=== PATIENT | female | born 1965 | race Caucasian/White ===

== ENCOUNTER 2017-03-07 09:47 | Day surgery (SDC) | payer OTHER ==
[2017-03-06 15:11] VITALS: BMI 38.7
[~2017-03-07 09:47] MED LIST: ceFAZolin SODIUM 1 GM VIAL IVPB ONE
[2017-03-07] MEDS ORDERED: ONDANSETRON 4 MG/2 ML VIAL IVPUSH PRN (10:55)
[2017-03-07] MEDS ORDERED: ACETAMINOPHEN 325 MG TABLET (FP) PO PRN (10:55)
--- NOTE | 2017-03-07 10:58 | HP ---
Admitting History and Physical - Admission History of Present Illness: 51 yo with hx/o endometriosis with new onset heavy menses Underwent TV ultrasound for evaluation of symptoms, found a thickened endometrium and a 1.7 x 1.2 x 1.2 mm area with vascular flow, findings suspicious of endometrial polyp. She desires surgical management. History Source: Patient Limitations to Obtaining History: No Limitations - Past Medical History Cardiovascular: No: HTN Pulmonary: No: Asthma Gastrointestinal: Yes: Gastritis, GERD, Hiatal Hernia ...LMP: 02/12/17 ...LMP Comment: HEAVIER,LONGER ...: No ...: 1 ...Para: 0 Heme/Onc: No: Current Chemotherapy Psych: Yes: Anxiety, Depression Endocrine: Yes: Hypothyroidism Additional Past Medical History: endometriosis - Past Surgical History Additional Past Surgical History: D&C, polypectomy - Smoking History Smoking history: Former smoker Have you smoked in the past 12 months: No If you are a former smoker, when did you quit?: 1993 - Alcohol/Substance Use Hx Alcohol Use: Yes (RARELY) - Social History Usual Living Arrangement: Yes: Alone History of Recent Travel: No Home Medications - Allergies Allergies/Adverse Reactions: Allergies Allergy/AdvReac Type Severity Reaction Status Date / Time aspirin Allergy Severe Verified 03/07/17 10:31 Penicillins Allergy Intermediate Verified 03/07/17 10:31 - Home Medications Home Medications: Ambulatory Orders Ascorbic Acid [Vitamin C -] 500 mg PO DAILY 03/06/17 BUPROPion HCL "SR" [Wellbutrin Sr [Nf]] 150 mg PO BID 03/06/17 Biotin 5,000 mcg DAILY 03/06/17 Calcium Carb, Citrate/Vit D3 [Calcium + D3 ER Tablet] 1 tab PO DAILY 03/06/17 Cetirizine HCl [Zyrtec -] 10 mg PO DAILY 03/06/17 Glucosamine/D3/Boswellia Gilma [Osteo Bi-Flex Tablet] 1 tablet PO DAILY Hydrochlorothiazide [Hctz -] 12.5 mg PO DAILY 03/06/17 L.acidoph,Paracasei, B.lactis [Probiotic] 1 each PO DAILY 03/06/17 Levothyroxine Sodium [Synthroid] 200 mcg PO DAILY 03/06/17 Lorazepam [Ativan] 0.25 mg PO PRN PRN 03/06/17 Mv-Mn/C/Glutamin/Lysin/[id number] [Airborne Lozenge] 1 tab PO DAILY 03/06/17 Pantoprazole Sodium 40 mg PO BID 03/06/17 Sucralfate Oral Suspension [Carafate Oral Suspension -] 1 gm PO HS 03/06/17 Valsartan 40 mg PO DAILY 03/06/17 Acetaminophen W/ Codeine #3 [Tylenol # 3 -] 1 tab PO Q6H #15 tablet MDD 4 Metronidazole 0.75% Vag. Gel [Metrogel 0.75% Vaginal Gel -] 1 applic VG HS #5 tube 03/07/17 Family Disease History - Family Disease History Family History: Denies Review of Systems - Review of Systems Constitutional: reports: No Symptoms Eyes: reports: No Symptoms HENT: reports: No Symptoms Cardiovascular: reports: No Symptoms Respiratory: reports: No Symptoms Gastrointestinal: reports: No Symptoms Breasts: reports: No Symptoms Reported Integumentary: reports: No Symptoms Neurological: reports: No Symptoms Endocrine: reports: No Symptoms Hematology/Lymphatic: reports: No Symptoms Psychiatric: reports: No Symptoms Physical Examination Vital Signs: Vital Signs Temperature 98.5 F 03/07/17 10:33 Pulse Rate 85 03/07/17 10:33 Respiratory Rate 16 03/07/17 10:33 Blood Pressure 123/62 03/07/17 10:33 O2 Sat by Pulse Oximetry (%) 98 03/07/17 10:33 Constitutional: Yes: Well Nourished, No Distress, Calm Cardiovascular: Yes: Regular Rate and Rhythm Respiratory: Yes: Regular, CTA Bilaterally Gastrointestinal: Yes: Normal Bowel Sounds, Soft Edema: No Integumentary: Yes: WNL Neurological: Yes: Alert, Oriented Psychiatric: Yes: Alert, Oriented Imaging - Results Ultrasound: Report Reviewed Assessment/Plan 51 yo with findings suspicious of endometrial polyp, menorrhagia for hysteroscopy, dilation and curettage 1. Consents reviewed and signed. Reviewed risks including but not limited to infection, bleeding, damage to surrounding organs such as bowel, bladder, reviewed risk of uterine perforation. Patient expressed understanding and written consent obtained 2. PCN allergy, plan for abx Postop 3. NSAID allergy, plan for tylenol #3 for pain control at home 4. SCDs for DVT PPX 5. Will proceed to OR
[2017-03-07] MEDS ORDERED: MIDAZOLAM HCL 2 MG/2 ML SINGLE DOSE VIAL ONE (11:16)
[2017-03-07] MEDS ORDERED: SUCCINYLCHOLINE CHLORIDE 200 MG/10 ML VIAL ONE ×2 (11:25→13:06)
[2017-03-07] MEDS ORDERED: PROPOFOL 20 ML ONE ×3 (11:50→13:05)
[2017-03-07] MEDS ORDERED: DESFLURANE GAS 240 ML BOTTLE IH ONE (12:31)
[2017-03-07] MEDS ORDERED: PROMETHAZINE HCL 25 MG/1 ML VIAL IVPUSH PRN (13:19)
--- NOTE | 2017-03-07 13:19 | OP ---
Operative Note - Note: Operative Date: 03/07/17 Pre-Operative Diagnosis: menorrhagia, endometrial polyp Operation: hysteroscopy, dilation and curettage using TrueClear system Findings: 1.5 cm smooth walled endometrial mass, likely fibroid, normal ostia bilaterally Post-Operative Diagnosis: Other Surgeon: Lety Mcdonough Anesthesiologist/FINAL TESTER: Lily Dutton MD (Dr. Lu) Anesthesia: General Estimated Blood Loss (mls): 5 Instrument used (Debridements only): TrueClear Fluid Volume Replaced (mls): 1,600 Operative Report Dictated: Yes
[2017-03-07] MEDS ORDERED: LACTATED RINGERS SOLUTION 1,000 ML IV SCH (13:30)
[2017-03-07 14:04] VITALS: TEMP 98.3
[2017-03-07] MEDS ORDERED: DEXAMETHASONE SOD PHOSPHATE 4 MG/1 ML VIAL ONE (16:01)
[2017-03-07] MEDS ORDERED: DEXAMETHASONE SOD PHOSPHATE 20 MG/5 ML VIAL IVPB ONE (16:13)
[2017-03-07 16:52] VITALS: BP 132/56; PULSE 71
--- NOTE | 2017-03-08 08:01 | OP ---
DATE OF OPERATION: 03/07/2017 ATTENDING PHYSICIAN RESPONSIBLE FOR SIGNING REPORT: Lety Mcdonough MD PREOPERATIVE DIAGNOSES: Menorrhagia and endometrial polyp. POSTOPERATIVE DIAGNOSES: Menorrhagia and endometrial polyp. SURGERY: Hysteroscopy, dilation and curettage using a TruClear system. SURGEON: Lety Mcdonough MD ANESTHESIOLOGIST: Lily Dutton MD and Dr. Moreno ANESTHESIA: General. ESTIMATED BLOOD LOSS: 5 FLUID VOLUME GIVEN: 1600 HYSTEROSCOPIC FLUID GIVEN: 2530 FLUID DEFICIT: 280 INDICATION: Patient is a 51-year-old with history of endometriosis with new- onset menorrhagia, underwent an ultrasound which revealed a 1.7 x 1.2 x 1.2 cm area with vascular flow, which was suspicious of a polyp. She desired definitive surgical management. She was counseled regarding risks, benefits, alternatives, and complications of the procedure including infection; bleeding; damage to surrounding organs such as bowel, bladder, ureters; uterine perforation. She expressed understanding and was brought to the operating room. DESCRIPTION OF PROCEDURE: When anesthesia was found to be adequate, patient was prepped and draped in normal sterile fashion, placed in dorsal lithotomy position using Luther stirrups. A Castro retractor was placed on the posterior portion of the patient's vagina. The cervix was gently grasped using an Allis clamp, and the cervix was dilated to accommodate a 5-mm hysteroscope. The scope was placed, and a large, smooth-walled mass was noted. The TruClear system was used, and the incisor attachment was used to resect a portion of the structure. During the resection, it was noted that the tissue was very, very thick and dense, and it was suspected to be a intracavitary fibroid. The device was removed; the incisor attachment was replaced with the ultra mini attachment. This was then used to aid in the removal of the endometrial mass. The entirety of the mass was removed with good hemostasis. Bilateral ostia were visualized. At this point in time, a directed curettage of the endometrium was performed using the incisor blade. All instruments were removed from the patient's vagina. The patient was awoken from anesthesia and was brought to recovery room in stable condition. Elpidio [id number] MTDD
--- NOTE | 2017-03-08 13:49 | PATH ---
Surgical Pathology Report Patient Name: ASHLIE NGO [facility]. Rec. #: [id number] /Age/Gender: 1965 (Age: 51) / F Account: [id number] Location: [facility] SURGICAL Taken: 03/07/2017 Received: 03/07/2017 Reported: 03/08/2017 Physicians: Lety Mcdonough Specimen(s) Received ENDOMETRIAL CURETTINGS AND POLYP Clinical History Endometrial polyp Final Diagnosis ENDOMETRIAL CURETTINGS AND POLYP, DILATATION AND CURETTAGE:POLYPOID FRAGMENTS OF SECRETORY ENDOMETRIUM AND SMOOTH MUSCLE CONSISTENT WITH LEIOMYOMA. Electronically Signed Emili Gore M.D. Gross Description Received in formalin labeled "endometrial curettage polyp," is a 4.8 x 2.7 x 0.3 cm aggregate of bautista soft tissue fragments. The formalin is filtered and the specimen is entirely submitted in one cassette. /03/07/2017 saudi03/07/2017
== END 2017-03-07 16:53 | disposition home or self-care (01) ==
LOC: JASU-SURG 09:47
PROVIDERS: ATTEND Obstetrics & Gynecology
PROC: 0UB98ZZ Excision of Uterus, Via Natural or Artificial Opening Endoscopic (ICD-10-PCS; principal; 2017-03-07 11:00)
PROC: 0UDB8ZX Extraction of Endometrium, Via Natural or Artificial Opening Endoscopic, Diagnostic (ICD-10-PCS; 2017-03-07 11:00)
DX: N92.0 Excessive and frequent menstruation with regular cycle (principal); D25.9 Leiomyoma of uterus, unspecified
CPT/HCPCS: 84703; 94760

== ENCOUNTER 2018-04-18 12:50 | Inpatient (IN) | payer OTHER ==
--- NOTE | 2018-04-18 13:49 | PDOC ---
History of Present Illness - General Chief Complaint: Pain, Acute Stated Complaint: POSTIVE DVT Time Seen by Provider: 04/18/18 13:10 History Source: Patient Exam Limitations: No Limitations - History of Present Illness Initial Comments: 04/18/18 15:17 Patient is a 52-year-old female with past medical history of hypertension, Abhilash's, GERD who presents to the ER today for a positive blood clot in the left lower extremity for 2 days. Patient also admits to associated shortness of breath on exertion and cough for 2 weeks. She states she has tried multiple inhalers and steroids however that has not helped with her breathing. She states there is a family history of blood clots. Denies chest pain, fever, chills, shortness of breath at rest, nausea, vomiting. No recent travel, denies hormone use, pt does not smoke. Triage vitals notable for HR of 101. Past History - Travel Traveled outside of the country in the last 30 days: No Close contact w/someone who was outside of country & ill: No - Past Medical History Allergies/Adverse Reactions: Allergies Allergy/AdvReac Type Severity Reaction Status Date / Time aspirin Allergy Severe Verified 03/07/17 10:31 Penicillins Allergy Intermediate Verified 03/07/17 10:31 Home Medications: Ambulatory Orders Bupropion HCl 0 mg PO BID 04/18/18 Hydrochlorothiazide [Hctz -] 12.5 mg PO DAILY 04/18/18 Levothyroxine [Synthroid -] 200 mcg PO ASDIR 04/18/18 Pantoprazole Sodium [Protonix] 40 mg PO BID 04/18/18 Prednisone 10 mg PO ASDIR 04/18/18 Salmeterol/Fluticasone [Advair 100Mcg/50Mcg -] 1 inh PO BID 04/18/18 Valsartan [Diovan] 40 mg PO DAILY 04/18/18 Anemia: No Asthma: No Cancer: No Cardiac Disorders: No CVA: No COPD: No CHF: No Dementia: No Diabetes: No GI Disorders: Yes Disorders: No HTN: Yes Hypercholesterolemia: No Liver Disease: No Seizures: No Thyroid Disease: Yes (hypothyroidism) - Surgical History Abdominal Surgery: No Appendectomy: No Cardiac Surgery: No Cholecystectomy: No Lung Surgery: No Neurologic Surgery: No Orthopedic Surgery: No - Suicide/Smoking/Psychosocial Hx Smoking History: Never smoked Have you smoked in the past 12 months: No If you are a former smoker, when did you quit?: 1993 Information on smoking cessation initiated: No Hx Alcohol Use: No Drug/Substance Use Hx: No Substance Use Type: None Hx Substance Use Treatment: No Review of Systems - Review of Systems Able to Perform ROS?: Yes Comments:: 04/18/18 17:34 CONSTITUTIONAL: Absent: fever, chills, diaphoresis, generalized weakness, malaise, loss of appetite HEENT: Absent: rhinorrhea, nasal congestion, throat pain, throat swelling, difficulty swallowing, mouth swelling, ear pain, eye pain, visual Changes CARDIOVASCULAR: Absent: chest pain, loss of consciousness, palpitations, irregular heart rate, peripheral edema RESPIRATORY: Present: shortness of breath on exertion, cough Absent: cough, shortness of breath, dyspnea with exertion, orthopnea, wheezing, stridor, hemoptysis GASTROINTESTINAL: Absent: abdominal pain, abdominal distension, nausea, vomiting, diarrhea, constipation, melena, hematochezia GENITOURINARY: Absent: dysuria, frequency, urgency, hesitancy, hematuria, flank pain, genital pain MUSCULOSKELETAL: Present: L leg pain d/t blood clot Absent: arthralgia, joint swelling SKIN: Absent: rash, itching, pallor HEMATOLOGIC/IMMUNOLOGIC: Absent: easy bleeding, easy bruising, lymphadenopathy, frequent infections ENDOCRINE: Absent: unexplained weight gain, unexplained weight loss, heat intolerance, cold intolerance NEUROLOGIC: Absent: headache, focal weakness or paresthesias, dizziness, unsteady gait, seizure, mental status changes, bladder or bowel incontinence PSYCHIATRIC: Absent: anxiety, depression, suicidal or homicidal ideation, hallucinations. Is the patient limited Maltese proficient: No *Physical Exam - Vital Signs Last Vital Signs Temp Pulse Resp BP Pulse Ox 98 F 100 H 20 146/77 97 04/18/18 12:52 04/18/18 12:52 04/18/18 12:52 04/18/18 12:52 04/18/18 12:52 - Physical Exam Comments: 04/18/18 17:34 GENERAL: Well developed, well nourished. Awake and alert. No acute distress. HEENT: Normocephalic, atraumatic. PERRLA, EOMI. No conjunctival pallor. Sclera are non- icteric. Moist mucous membranes. Oropharynx is clear. NECK: Supple. Full ROM. No JVD. Carotid pulses 2+ and symmetric, without bruits. No thyromegaly. No lymphadenopathy. CARDIOVASCULAR: Regular rate and rhythm. No murmurs, rubs, or gallops. Distal pulses are 2+ and symmetric. PULMONARY: No evidence of respiratory distress. Lungs clear to auscultation bilaterally. No wheezing, rales or rhonchi. ABDOMINAL: Soft. Non-tender. Non-distended. No rebound or guarding. No organomegaly. Normoactive bowel sounds. MUSCULOSKELETAL Normal range of motion at all joints. No bony deformities or tenderness. No CVA tenderness. EXTREMITIES: No cyanosis. No clubbing. No edema. (+) L calf tenderness. SKIN: Warm and dry. Normal capillary refill. No rashes. No jaundice. NEUROLOGICAL: Alert, awake, appropriate. Cranial nerves 2-12 intact. No deficits to light touch and temperature in face, upper extremities and lower extremities. No motor deficits in the in face, upper extremities and lower extremities. Normoreflexic in the upper and lower extremities. Normal speech. Toes are down- going bilaterally. Gait is normal without ataxia. PSYCHIATRIC: Cooperative. Good eye contact. Appropriate mood and affect. Moderate Sedation - Procedure Monitoring Vital Signs: Procedure Monitoring Vital Signs Temperature 98 F 04/18/18 12:52 Pulse Rate 100 H 04/18/18 12:52 Respiratory Rate 20 04/18/18 12:52 Blood Pressure 146/77 04/18/18 12:52 O2 Sat by Pulse Oximetry (%) 97 04/18/18 12:52 ED Treatment Course - LABORATORY CBC & Chemistry Diagram: 04/18/18 14:08 04/18/18 14:08 Medical Decision Making - Critical Care Time Total Critical Care Time (minutes): 30 Critical Care Statement: The care of this patient involved high complexity decision making to prevent further life threatening deterioration of the patient 's condition and/or to evaluate & treat vital organ system(s) failure or risk of failure. - Medical Decision Making 04/18/18 18:18 Patient is a 52-year-old female with past medical history of hypertension, Abhilash's, GERD who presents to the emergency department today for a positive blood clot diagnosed on ultrasound on the left leg as well as shortness of breath on exertion. Clinical concern for PE at this time given positive DVT study and tachycardia at 100. On exam left leg is tender to palpation. Ultrasound documented in our facility for positive left DVT. Lungs are clear to auscultation bilaterally. Patient denies hormone use, smoking, recent travel longer than 6 hours. Lab work is unremarkable at this time. EKG: Rate 90BPM. Sinus Rhythm. Normal intervals and axis. No acute ST-T wave changes. CTA of chest shows multiple PEs in the distal branches as well as a small PE in the left mainstem branch. Given multiple PEs and a positive DVT, unprovoked, will admit the patient for clotting disorder workup and for heparin. Daina paged 04/18/18 18:[address] Lynch PGY3. Accepts for admission under Dr. Velasco. Heparin drip order set placed *DC/Admit/Observation/Transfer Diagnosis at time of Disposition: Pulmonary embolism Qualifiers: Pulmonary embolism type: unspecified Chronicity: acute Acute cor pulmonale presence: without acute cor pulmonale Qualified Code(s): I26.99 - Other pulmonary embolism without acute cor pulmonale DVT (deep venous thrombosis) Qualifiers: DVT location: lower extremity Affected thrombotic vein of extremity: unspecified vein of extremity Chronicity: acute Laterality: left Qualified Code( s): I82.402 - Acute embolism and thrombosis of unspecified deep veins of left lower extremity - Discharge Dispostion Condition at time of disposition: Guarded Decision to Admit order: Yes - Referrals - Patient Instructions - Post Discharge Activity
[2018-04-18 14:28] LABS: HCG,QUALITATIVE URINE Negative
[2018-04-18 14:36] LABS: URINE APPEARANCE SLCLOUDY; URINE BILIRUBIN NEGATIVE (<2.0 mg/dL); URINE COLOR YELLOW; URINE GLUCOSE (UA) NEGATIVE (NEGATIVE); URINE KETONE NEGATIVE (NEGATIVE); URINE LEUK ESTERASE 1+ (NEGATIVE); URINE NITRITE NEGATIVE (NEGATIVE); URINE PROTEIN 1+ (NEGATIVE); URINE UROBILINOGEN NEGATIVE mg/dL (0.2-1.0)
[2018-04-18 14:39] LABS: EPI CELLS MANY /HPF (FEW); URINE HYALINE CAST 1 /lpf; URINE MUCUS RARE
[2018-04-18 14:54] LABS: BASO % 0.3 % (0-2.0); EOS % 0.9 % (0-4.5); HEMATOCRIT 33.1 % (32.4-45.2); HEMOGLOBIN 10.7 GM/dL (10.7-15.3); LYMPH % 20.4 % (8-40); MCHC 32.4 g/dl (32.0-36.0); MEAN CELL VOLUME 77.3 fl (80-96); MEAN PLT VOLUME 7.5 fl (7.5-11.1); MONO % 6.6 % (3.8-10.2); NEUT % 71.8 % (42.8-82.8); PLATELET COUNT 318 K/MM3 (134-434); RBC 4.29 M/mm3 (3.60-5.2); RDW 17.7 % (11.6-15.6)
[2018-04-18 15:00] LABS: INR 1.03 (0.83-1.09); PROTHROMBIN TIME (PATIENT) 12.2 SEC (9.7-13.0)
[2018-04-18 15:11] LABS: ALBUMIN 3.5 g/dl (3.4-5.0); ALK PHOS 90 U/L (45-117); ANION GAP 9 MMOL/L (8-16); BILIRUBIN,TOTAL 0.4 mg/dL (0.2-1); BLOOD UREA NITROGEN 10 mg/dL (7-18); CALCIUM 8.6 mg/dL (8.5-10.1); CHLORIDE 103 mmol/L (98-107); CO2 25 mmol/L (21-32); CREATININE 0.9 mg/dL (0.55-1.3); GLUCOSE,RANDOM 101 mg/dL (74-106); POTASSIUM 3.4 mmol/L (3.5-5.1); SGOT/AST 11 U/L (15-37); SGPT/ALT 19 U/L (13-61); SODIUM 137 mmol/L (136-145); TOT PROT 7.3 g/dl (6.4-8.2)
[2018-04-18] MEDS ORDERED: HEPARIN NA (PORCINE) 5,000 UNITS/ML 1ML VIAL IVPUSH PRN ×2 (18:39)
[2018-04-18] MEDS ORDERED: LORazepam 2 MG/ML SDV VIAL ONE (18:44)
[2018-04-18] MEDS ORDERED: HEPARIN - 25,000 UNIT in SODIUM CHLORIDE 495 ML IV SCH (18:45)
[2018-04-18] MEDS ORDERED: HEPARIN INFUSION - 25,000 UNITS/500 ML INFUS.BAG IVPB ONE (19:05)
[2018-04-18] MEDS ORDERED: HEPARIN NA (PORCINE) 5,000 UNITS/ML 1ML VIAL ONE (19:05)
--- NOTE | 2018-04-18 21:32 | PN ---
Teaching Attending Note Name of Resident: Julieta Lopez ATTENDING PHYSICIAN STATEMENT I saw and evaluated the patient. I reviewed the resident's note and discussed the case with the resident. I agree with the resident's findings and plan as documented. SUBJECTIVE: Seen and examined; please refer to resident note for further historical information. Briefly, this is a 52 y/o female presenting to the ER with a CC of L-leg pain and swelling for a day and several weeks of intermittent SOB and chest tightness. She is afebrile and hemodynamically stable. Nothing makes it better/worse. She was found to have a LLE DVT and multiple PEs; does have a family history of blood clots but has never been tested. She originally called her PCP who instructed her to go to urgent care; when they couldn't take her insurance she came here. 10 sys ROS done and negative aside from HPI PMH (HTN, Hasimotos, GERD, endometriosis, vertigo), PSH (hysteroscopy), Family hx (+blood clots maternal/paternal grandparents, father is on coumadin but she doesn't know why), Social hx reviewed Medication list reviewed; pending reconciliation OBJECTIVE: VS, labs, imaging reviewed NAD, AAO, resting comfortably in bed NC AT EOMI PERRLA RRR s1/2 no mgr Lungs CTAB, w/ sym exp NT ND +BS CN2-12 wnl, no fnd Normal mood, appropriate behavior ASSESSMENT AND PLAN: Patient presents with LLE DVT and multiple small PEs with a family history of blood clots (unknown dx) 1) Pulmonary Embolisms/DVT -On WB Lovenox; continue. Monitor on tele. Check echo for R-heart strain and check troponin to ensure couldn't be categorized as submassive. No hemodynamic abnormalities noted presently. Satting well on RA. Given family hx will obtain hypercoagulable workup (PE appears unprovoked with no recent travel, OCP , etc) and plan to transition to PO AC. 2) HTN -Continue home meds; controlled 3) Hx Abhilash's -Continue home meds 4) GERD -Continue home meds 5) Microcytosis without anemia -Can check OP labs 6) Leukocytosis -Mild, likely reactive FENA -PO -PRN replete -Home diet -As tolerated Full Code
[2018-04-18] MEDS: KCL 10 MEQ IVPB 10 MEQ/100 ML INFUS.BAG IVPB SCH ×2 (21:50→23:16)
[2018-04-18] MEDS ORDERED: KCL 10 MEQ IVPB 10 MEQ/100 ML INFUS.BAG IVPB ONE (21:58)
[2018-04-18] MEDS ORDERED: ENOXAPARIN NA (PORCINE) 120 MG/0.8 ML DISP.SYRIN SQ SCH (22:00)
[2018-04-18] MEDS ORDERED: ENOXAPARIN SQ SCH (22:30)
[2018-04-18] MEDS ORDERED: ENOXAPARIN NA (PORCINE) 100 MG/1 ML DISP.SYRIN SQ SCH (22:33)
--- NOTE | 2018-04-18 22:35 | HP ---
CHIEF COMPLAINT: shortness of breath PCP: Dr. Martinez HISTORY OF PRESENT ILLNESS: 52F with PMHx of HTN, Hashimotos, GERD/Hiatal Hernia, endometriosis, diverticulosis, anxiety, and vertigo presents to ED with shortness of breath. Pt reports waking up at 6 AM this morning with sudden sharp pain in left calf and left ankle, dizziness, cold-sweats, and proceeded to put on an old pair of compression stockings without relief. Pt tried to contact her PCP Dr. Martinez, advised to go to Urgent Care, but urgent care didnt take her insurance and she came to the ER. Denies any CP or SOB at rest prior to arrival. Pt reports increased SOB on exertion since February and began having dry cough, and intermittent episodes of chest tightness two weeks ago. Pt saw her PCP and was diagnosed with sinus infection/bronchitis, completed doxycycline without relief, and was switched to PO Prednisone 10mg by her PCP on Sunday. Denies fever, chills, nausea, vomiting, headache, chest pain, diarrhea. Pt denies recent travel, hormone use, recent surgery in past 4 weeks, any history of DVT/PE Pt notes family history of DVTs and PEs through her maternal and paternal grandmothers. PSHx: Endometrial polyp and Hysteroscopy ER course was notable for: (1) VS wnl, WBC 13, K 3.4 (2) Heparin drip started, IV Benadryl, Percocet, Ativan 1 mg IVP given (3) CTA chest showed multiple PE's Recent Travel: Denies PAST MEDICAL HISTORY: HTN Abhilash's GERD Hiatal hernia endometriosis diverticulosis anxiety PAST SURGICAL HISTORY: Tonsillectomy Fibroid removal Social History: Smoking: Smokes 1/2 pack per day since teenager; 4.5 pack year history Alcohol: Social Drugs: Denies Family History: Father- Dx with CHF in 2008; currently on Coumadin Mother- None Paternal grandmother- DVT/PE Maternal grandfather- hx of blood clots, [place] No children No known famhx of clotting disorders Allergies aspirin Allergy (Severe, Verified 03/07/17 10:31) "ANAPHYLACTIC REACTION" Penicillins Allergy (Intermediate, Verified 03/07/17 10:31) UNSURE OF REACTION HOME MEDICATIONS: Home Medications Medication Instructions Recorded Bupropion HCl 0 mg PO BID 04/18/18 Hydrochlorothiazide [Hctz -] 12.5 mg PO DAILY 04/18/18 Levothyroxine [Synthroid -] 200 mcg PO ASDIR 04/18/18 Pantoprazole Sodium [Protonix] 40 mg PO BID 04/18/18 Prednisone 10 mg PO ASDIR 04/18/18 Salmeterol/Fluticasone [Advair 1 inh PO BID 04/18/18 100Mcg/50Mcg -] Valsartan [Diovan] 40 mg PO DAILY 04/18/18 REVIEW OF SYSTEMS CONSTITUTIONAL: Absent: fever, chills, diaphoresis, generalized weakness, malaise, loss of appetite, weight change HEENT: Absent: rhinorrhea, nasal congestion, throat pain, throat swelling, difficulty swallowing, mouth swelling, ear pain, eye pain, visual changes CARDIOVASCULAR: Absent: chest pain, syncope, palpitations, irregular heart rate, lightheadedness , peripheral edema RESPIRATORY: +shortness of breath, dyspnea with exertion Absent: cough, orthopnea, wheezing, stridor, hemoptysis GASTROINTESTINAL: Absent: abdominal pain, abdominal distension, nausea, vomiting, diarrhea, constipation, melena, hematochezia GENITOURINARY: Absent: dysuria, frequency, urgency, hesitancy, hematuria, flank pain, genital pain MUSCULOSKELETAL: Absent: myalgia, arthralgia, joint swelling, back pain, neck pain SKIN: Absent: rash, itching, pallor HEMATOLOGIC/IMMUNOLOGIC: Absent: easy bleeding, easy bruising, lymphadenopathy, frequent infections ENDOCRINE: Absent: unexplained weight gain, unexplained weight loss, heat intolerance, cold intolerance NEUROLOGIC: Absent: headache, focal weakness or paresthesias, dizziness, unsteady gait, seizure, mental status changes, bladder or bowel incontinence PSYCHIATRIC: Absent: anxiety, depression, suicidal or homicidal ideation, hallucinations. PHYSICAL EXAMINATION Vital Signs - 24 hr 04/18/18 04/18/18 04/18/18 12:52 18:18 21:15 Temperature 98 F 98.5 F Pulse Rate 100 H Pulse Rate [ 86 88 Apical] Respiratory 20 16 19 Rate Blood Pressure 146/77 Blood Pressure 131/75 130/72 [Right Arm] O2 Sat by Pulse 97 99 100 Oximetry (%) GENERAL: AAOx3. NAD. HEENT: AT/NC. EOMI. ROSANNA. Moist mucus membranes. NECK: Normal range of motion, supple without lymphadenopathy, JVD, or masses. LUNGS: CTA B/L. No wheezes/rhonchi/rales noted. Symmetric chest rise. HEART: RRR. Normal S1, S2. No murmurs noted. ABDOMEN: Obese. Soft, NT/ND. Normoactive BS. No masses, guarding, rebound tenderness. MUSCULOSKELETAL: Normal range of motion at all joints. No bony deformities or tenderness. No CVA tenderness. EXTREMITIES: Normal ROM in b/l u/l extremities. 5/5 muscle strength throughout. Mild LLE swelling, but no pitting edema. Minimal TTP in LLE. No erythema, discoloration, warmth, redness noted. NEUROLOGICAL: Normal speech. SKIN: Warm, dry, normal turgor, no rashes or lesions noted, normal capillary refill. Laboratory Results - last 24 hr 04/18/18 04/18/18 04/18/18 14:00 14:08 14:08 WBC 13.0 H RBC 4.29 Hgb 10.7 Hct 33.1 MCV 77.3 L MCH 25.0 L MCHC 32.4 RDW 17.7 H Plt Count 318 MPV 7.5 Absolute Neuts (auto) 9.3 H Neutrophils % 71.8 Lymphocytes % 20.4 Monocytes % 6.6 Eosinophils % 0.9 Basophils % 0.3 Nucleated RBC % 0 PT with INR 12.20 INR 1.03 Sodium Potassium Chloride Carbon Dioxide Anion Gap BUN Creatinine Creat Clearance w eGFR Random Glucose Calcium Total Bilirubin AST ALT Alkaline Phosphatase Troponin I Total Protein Albumin Urine Color Yellow Urine Appearance Slcloudy Urine pH 7.0 Ur Specific [place] 1.020 Urine Protein 1+ H Urine Glucose (UA) Negative Urine Ketones Negative Urine Blood Negative Urine Nitrite Negative Urine Bilirubin Negative Urine Urobilinogen Negative Ur Leukocyte Esterase 1+ H Urine WBC (Auto) 9 Urine RBC (Auto) 1 Ur Epithelial Cells Many Hyaline Casts 1 Urine Mucus Rare Urine HCG, Qual Negative Blood Type Antibody Screen 04/18/18 04/18/18 04/18/18 14:08 14:08 21:25 WBC RBC Hgb Hct MCV MCH MCHC RDW Plt Count MPV Absolute Neuts (auto) Neutrophils % Lymphocytes % Monocytes % Eosinophils % Basophils % Nucleated RBC % PT with INR INR Sodium 137 Potassium 3.4 L Chloride 103 Carbon Dioxide 25 Anion Gap 9 BUN 10 Creatinine 0.9 Creat Clearance w eGFR > 60 Random Glucose 101 Calcium 8.6 Total Bilirubin 0.4 AST 11 L ALT 19 Alkaline Phosphatase 90 Troponin I < 0.02 Total Protein 7.3 Albumin 3.5 Urine Color Urine Appearance Urine pH Ur Specific [place] Urine Protein Urine Glucose (UA) Urine Ketones Urine Blood Urine Nitrite Urine Bilirubin Urine Urobilinogen Ur Leukocyte Esterase Urine WBC (Auto) Urine RBC (Auto) Ur Epithelial Cells Hyaline Casts Urine Mucus Urine HCG, Qual Blood Type A POSITIVE Antibody Screen Negative IMAGING: * CTA Chest: Multiple PE in the proximal and distal branches to the L upper and lower lobe PA as well as R upper, middle and R lower lobe pulmonary arteries. There is also a small embolus at the L main PA bifurcation. No acute lung disease is present. No enlarged mediastinal or hilar LN are identified. Evaluation of the upper abd appears unremarkable. * LE doppler: LLE DVT - popliteal/posterior tibial veins * EKG: NSR, HR 90, QTc 472 ms, No ST-T changes ASSESSMENT/PLAN: 52F w/ pmhx of HTN, Hashimotos, GERD/Hiatal Hernia, endometriosis, diverticulosis, anxiety, and vertigo presents to ED with shortness of breath found to have multiple PEs. #Pulmonary Embolism -CTA chest noted above; multiple PEs in proximal and distal branches to L upper and lower lobe PA as wel las R uper, middle, R lower lobe pulmonary arteries. -Pt started on heparin drip in ED; will continue with Lovenox 130 SQ BID and plan to transition to PO AC -Cont to monitor O2 sat. Pt is currently hemodynamically stable. Seems to be unprovoked PE as she has no hx of recent surgery, immobilization, OCP/hormone therapy, trauma, or active cancer. Given family hx, will do hypercoaguable workup. -Protein C/S, Antithrombin III, Factor V Leiden, ESR ordered -Admit to tele #HTN Cont home meds: HCTZ 12.5 QD, Valsartan 40 QD #Abhilash's Cont home meds: Synthroid 200 mcg QD #GERD/Gastritis Cont home med: Protonix 40 BID #Hx of Tobacco Use Cont home med: Bupropion 300 mg QD #Vertigo -Cont to monitor #Prophylaxis -Currently on Lovenox #FEN -no IVf; PO hydration -recheck lytes in AM -Sodium-controlled diet dispo -admit to tele -full code -medications have been reconciled Visit type - Emergency Visit Emergency Visit: Yes ED Registration Date: 04/18/18 Care time: The patient presented to the Emergency Department on the above date and was hospitalized for further evaluation of their emergent condition. - New Patient This patient is new to me today: Yes Date on this admission: 04/19/18 - Critical Care Critical Care patient: No
[2018-04-18] MEDS ORDERED: PATIENT'S OWN MEDICATION (NON-FORMULARY) (Fluticasone/Salmeterol [Advair Hfa 115-21 Mcg In PO SCH (22:45)
[2018-04-18] MEDS ORDERED: ENOXAPARIN NA (PORCINE) 30 MG/0.3 ML DISP.SYRIN SQ ONE (22:54)
[2018-04-18] MEDS ORDERED: ENOXAPARIN NA (PORCINE) 100 MG/1 ML DISP.SYRIN SQ ONE (22:54)
[2018-04-18] MEDS: PANTOPRAZOLE 40 MG TABLET (FP) PO SCH (23:11)
[2018-04-18] MEDS: ENOXAPARIN 100 MG, ENOXAPARIN 30 MG SQ SCH (23:11)
[2018-04-18] MEDS: FLUTICASONE/SALMETEROL 100 MCG/50 MCG DISKUS IH SCH (23:14)
[2018-04-18] MEDS ORDERED: ACETAMINOPHEN 325 MG TABLET (FP) PO PRN (23:19)
[2018-04-19 00:39] VITALS: BMI 41.1
[2018-04-19] MEDS: KCL 10 MEQ IVPB 10 MEQ/100 ML INFUS.BAG IVPB SCH (00:46)
[2018-04-19] MEDS ORDERED: LORazepam 1 MG TABLET PO ONE ×3 (01:26→21:50)
[2018-04-19] MEDS: LEVOTHYROXINE NA 100 MCG TABLET (FP) PO SCH (06:07)
[2018-04-19 06:42] LABS: BASO % 0.5 % (0-2.0); EOS % 2.2 % (0-4.5); HEMATOCRIT 31.4 % (32.4-45.2); HEMOGLOBIN 10.3 GM/dL (10.7-15.3); LYMPH % 39.4 % (8-40); MCH 25.3 pg (25.7-33.7); MCHC 32.7 g/dl (32.0-36.0); MEAN CELL VOLUME 77.4 fl (80-96); MEAN PLT VOLUME 7.5 fl (7.5-11.1); NEUT % 49.9 % (42.8-82.8); PLATELET COUNT 304 K/MM3 (134-434); RBC 4.06 M/mm3 (3.60-5.2); RDW 17.9 % (11.6-15.6); WHITE BLOOD COUNT 9.8 K/mm3 (4.0-10.0)
[2018-04-19 08:11] LABS: ALBUMIN 3.1 g/dl (3.4-5.0); ALK PHOS 84 U/L (45-117); ANION GAP 6 MMOL/L (8-16); BILIRUBIN,TOTAL 0.5 mg/dL (0.2-1); BLOOD UREA NITROGEN 8 mg/dL (7-18); CHLORIDE 106 mmol/L (98-107); CO2 26 mmol/L (21-32); CREATININE 0.8 mg/dL (0.55-1.3); GLUCOSE,RANDOM 85 mg/dL (74-106); POTASSIUM 3.8 mmol/L (3.5-5.1); SGOT/AST 11 U/L (15-37); SGPT/ALT 15 U/L (13-61); SODIUM 138 mmol/L (136-145); TOT PROT 6.5 g/dl (6.4-8.2)
[2018-04-19] MEDS: HYDROCHLOROTHIAZIDE 12.5 MG CAPSULE (FP) PO SCH (09:40)
[2018-04-19] MEDS: VALSARTAN 40 MG TABLET (FP) PO SCH (09:40)
[2018-04-19] MEDS: PANTOPRAZOLE 40 MG TABLET (FP) PO SCH ×2 (09:40→22:47)
[2018-04-19] MEDS ORDERED: PT OWN MED DRAWER 7, Y5N ONE (10:55)
[2018-04-19] MEDS: ENOXAPARIN 100 MG, ENOXAPARIN 30 MG SQ SCH ×2 (10:57→22:47)
--- NOTE | 2018-04-19 13:31 | CONSULT ---
Consult Consult Specialty:: Oncology/hematology Referred by:: Dr. Laureano Reason for Consultation:: Multiple pulmonary emboli. + family history of DVT and pulmonary emboli in grandparents - History of Present Illness Chief Complaint: February - Upper respiratory like infection , no fever, but with some SOB and dyspnea. Given antibiotic therapy with some improvement. Recently with progrssive SOB, dyspnea, fatigue, dizziness.Given prednisone 5 days prior to admission with minimal improvement. Developed left ankle and calf pain Preseented to ER - found to have DVT and CT with Multiple pulmonary emboli-- JAMES, LLL, small embolus at bifurcation, and emboli in RUL,RML, RLL. - History Source History Provided By: Patient Limitations to Obtaining History: No Limitations - Past Medical History Pulmonary: Yes: Other (SOB/dyspnea, [place]) Gastrointestinal: Yes: Gastritis, GERD, Hiatal Hernia, Other (IBS; colonoscopy and EGD-2016) Reproductive: Yes: Other (2011 hysteroscopy and endometrial polyp removed ; ) ...LMP: 04/19/18 ...: No ...: 1 ...Para: 0 () Psych: Yes: Anxiety, Depression Endocrine: Yes: Hypothyroidism, Other (Abhilash's) - Past Surgical History Additional Surgical History: 2011- hysteroscopy and removal of endometrial polyp. 2017- February- fibroid removal. 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 History of Recent Travel: No Home Medications - Allergies Allergies/Adverse Reactions: Allergies Allergy/AdvReac Type Severity Reaction Status Date / Time aspirin Allergy Severe Verified 03/07/17 10:31 Iodinated Contrast- Oral and Allergy Intermediate Hives Verified 04/19/18 02:01 IV Dye Penicillins Allergy Intermediate Verified 03/07/17 10:31 - Home Medications Home Medications: Ambulatory Orders Albuterol Sulfate Inhaler - [Ventolin Hfa Inhaler -] 1 - 2 inh PO Q4H PRN Bupropion HCl [Bupropion HCl Sr] 150 mg PO BID 04/18/18 Fluticasone/Salmeterol [Advair Hfa 115-21 Mcg Inhaler] 1 inh PO BID 04/18/18 Hydrochlorothiazide [Hctz -] 12.5 mg PO DAILY 04/18/18 Levothyroxine [Synthroid -] 200 mcg PO ASDIR 04/18/18 Pantoprazole Sodium [Protonix] 40 mg PO BID 04/18/18 Prednisone 10 mg PO ASDIR 04/18/18 Salmeterol/Fluticasone [Advair 100Mcg/50Mcg -] 1 inh PO BID 04/18/18 Sodium Chloride Nasal [place] [[place] Nasal [place]] 2 spray NS BID PRN Valsartan [Diovan] 40 mg PO DAILY 04/18/18 Family Disease History - Family Disease History Family Disease History: Other: Grandparent (maternal and paternal grandparents both with history of DVT's and P.E.'s) Review of Systems - Review of Systems Constitutional: reports: Diaphoresis, Malaise, Weakness Eyes: denies: Blurred Vision, Double Vision, Recent Change in Vision HENT: reports: Nasal Congestion. denies: Difficult Swallowing, Epistaxis, Throat Pain Neck: reports: Other (history of discogenic disease cervical neck with RUE radiculopathy). denies: Swollen Glands, Tenderness Cardiovascular: reports: Shortness of Breath. denies: Chest Pain, Edema Respiratory: reports: Exercise Intolerance, SOB, SOB on Exertion. denies: Hemoptysis Gastrointestinal: reports: Constipation, Diarrhea, Indigestion, Other (GERD) Genitourinary: denies: Burning, Dysuria, Frequency, Incontinence Breasts: reports: No Symptoms Reported, Other (Mammography 2018) Musculoskeletal: denies: Back Pain, Extremity Pain, Joint Swelling, Muscle Pain Integumentary: denies: Bruising, Change in Color, Rash Neurological: reports: Dizziness Endocrine: reports: No Symptoms Hematology/Lymphatic: denies: Easily Bruised, Excessive Bleeding, Swollen Glands Psychiatric: reports: No Symptoms Physical Exam Vital Signs: Vital Signs Temperature 98.4 F 04/19/18 09:43 Pulse Rate 92 H 04/19/18 09:43 Respiratory Rate 20 04/19/18 09:43 Blood Pressure 149/91 04/19/18 09:43 O2 Sat by Pulse Oximetry (%) 100 04/18/18 22:00 Constitutional: Yes: Mild Distress Eyes: Yes: PERRL. No: Diplopia, Ptosis, Sclera Icterus HENT: Yes: Atraumatic, Normocephalic. No: Epistaxis, Hoarseness, Nasal Congestion, Thrush, Tonsillar Exudate Neck: Yes: Supple, Trachea Midline. No: Lymphadenopathy, Tenderness, Thyromegaly Cardiovascular: Yes: Regular Rate and Rhythm Respiratory: Yes: Regular, CTA Bilaterally Gastrointestinal: Yes: Normal Bowel Sounds, Soft, Abdomen, Obese. No: Hepatomegaly, Splenomegaly Renal/: No: CVA Tenderness - Right Breast(s): Yes: WNL, Left, Right Musculoskeletal: No: Back Pain, Muscle Pain Extremities: No: Calf Tenderness Edema: LLE: 2+, RLE: 2+ Integumentary: Yes: WNL Neurological: Yes: Weakness ...Motor Strength: WNL Psychiatric: Yes: WNL Labs: CBC, BMP 04/19/18 06:00 04/19/18 06:00 Imaging - Results Cat Scan: Report Reviewed, Image Reviewed Problem List - Problems (1) DVT (deep venous thrombosis) Assessment/Plan: UNprovoked DVT left popliteal and tibal veins --partially occlusive thrombus on ultrasound. Multiple pulmonary emboli RUL,RLL small embolus in bifurcation,Emboli in RUL, RML, RLL. Family history in grandparents of pulmonary emboli and DVT's. Patient will need thrombophilia work up --it can be done as outpatient Would do age appropriate malignancy work up to include CT of abdomen and pelvis. Has annual mammography and has had colonoscopy and EGD in 2017 Would do ECHO Can bridge to coumadin or NOAC for longterm treatment . Does have anemia with heavy menses- will do screening . Code(s): I82.409 - ACUTE EMBOLISM AND THOMBOS UNSP DEEP VN UNSP LOWER EXTREMITY Qualifiers: DVT location: lower extremity Affected thrombotic vein of extremity: unspecified vein of extremity Chronicity: acute Laterality: left Qualified Code(s): I82.402 - Acute embolism and thrombosis of unspecified deep veins of left lower extremity
--- NOTE | 2018-04-19 14:16 | PN ---
Teaching Attending Note Name of Resident: Antolin Harrell ATTENDING PHYSICIAN STATEMENT I saw and evaluated the patient. I reviewed the resident's note and discussed the case with the resident. I agree with the resident's findings and plan as documented. SUBJECTIVE: Ms Gonzalez says her leg is feeling better but she is still short of breath. Denies cp and n/v. OBJECTIVE: Last Vital Signs Temp Pulse Resp BP Pulse Ox 36.9 C 92 H 20 149/91 100 04/19/18 09:43 04/19/18 09:43 04/19/18 09:43 04/19/18 09:43 04/18/18 22:00 Gen: nad, obese Pul: ctab w/o w/r/r CV: rrr w/o m/r/g Abd: +bs, s/nt/nd Ext: LLE edema CBC, BMP 04/19/18 06:00 04/19/18 06:00 ASSESSMENT AND PLAN: -case d/w Dr Cook -can change to NOAC on discharge -will obtain ECHO and CT scan A/P -continue home regimen Problem List - Problems (1) DVT (deep venous thrombosis) Code(s): I82.409 - ACUTE EMBOLISM AND THOMBOS UNSP DEEP VN UNSP LOWER EXTREMITY Qualifiers: DVT location: lower extremity Affected thrombotic vein of extremity: unspecified vein of extremity Chronicity: acute Laterality: left Qualified Code(s): I82.402 - Acute embolism and thrombosis of unspecified deep veins of left lower extremity (2) Pulmonary embolism Code(s): I26.99 - OTHER PULMONARY EMBOLISM WITHOUT ACUTE COR PULMONALE Qualifiers: Pulmonary embolism type: unspecified Chronicity: acute Acute cor pulmonale presence: without acute cor pulmonale Qualified Code(s): I26.99 - Other pulmonary embolism without acute cor pulmonale (3) HTN (hypertension) Code(s): I10 - ESSENTIAL (PRIMARY) HYPERTENSION (4) Hypothyroid Code(s): E03.9 - HYPOTHYROIDISM, UNSPECIFIED
--- NOTE | 2018-04-19 14:27 | EKG ---
Test Reason : Blood Pressure : / mmHG Vent. Rate : 090 BPM Atrial Rate : 090 BPM P-R Int : 148 ms QRS Dur : 090 ms QT Int : 386 ms P-R-T Axes : 046 047 029 degrees QTc Int : 472 ms NORMAL SINUS RHYTHM NORMAL ECG NO PREVIOUS ECGS AVAILABLE Confirmed by MARIA LUZ MADRIGAL MD ([id number]) on 04/19/2018 2:27:31 PM Referred By: Confirmed By:MARIA LUZ MADRIGAL MD
[2018-04-19] MEDS: FLUTICASONE/SALMETEROL 100 MCG/50 MCG DISKUS IH SCH ×2 (14:28→22:47)
--- NOTE | 2018-04-19 14:33 | PN ---
Physical Exam: SUBJECTIVE: Patient seen and examined no new complaints over night Pt feels better OBJECTIVE: Vital Signs Period Temp Pulse Resp BP Sys/[place] Pulse Ox Last 24 Hr 97.6 F-98.6 F 86-98 16-20 128-149/72-91 99-100 GENERAL: AAOx3. NAD. HEENT: AT/NC. EOMI. ROSANNA. NECK: Normal range of motion, supple without lymphadenopathy, JVD, or masses. LUNGS: CTA B/L. No wheezes/rhonchi/rales noted. Symmetric chest rise. HEART: RRR. Normal S1, S2. No murmurs noted. ABDOMEN: Obese. Soft, NT/ND. Normoactive BS. No masses, guarding, rebound tenderness. MUSCULOSKELETAL: Normal range of motion at all joints. No bony deformities or tenderness. No CVA tenderness. EXTREMITIES: Normal ROM in b/l u/l extremities. 5/5 muscle strength throughout. Mild LLE swelling, but no pitting edema. Minimal TTP in LLE. No erythema, discoloration, warmth, redness noted. NEUROLOGICAL: Normal speech. SKIN: Warm, dry, normal turgor, no rashes or lesions noted, normal capillary refill. Laboratory Results - last 24 hr 04/18/18 04/18/18 04/18/18 08:35 14:00 14:08 WBC 13.0 H RBC 4.29 Hgb 10.7 Hct 33.1 MCV 77.3 L MCH 25.0 L MCHC 32.4 RDW 17.7 H Plt Count 318 MPV 7.5 Absolute Neuts (auto) 9.3 H Neutrophils % 71.8 Lymphocytes % 20.4 Monocytes % 6.6 Eosinophils % 0.9 Basophils % 0.3 Nucleated RBC % 0 ESR PT with INR INR Sodium Potassium Chloride Carbon Dioxide Anion Gap BUN Creatinine Creat Clearance w eGFR Random Glucose Calcium Total Bilirubin AST ALT Alkaline Phosphatase Troponin I Total Protein Albumin Urine Color Yellow Urine Appearance Slcloudy Urine pH 7.0 Ur Specific [place] 1.020 Urine Protein 1+ H Urine Glucose (UA) Negative Urine Ketones Negative Urine Blood Negative Urine Nitrite Negative Urine Bilirubin Negative Urine Urobilinogen Negative Ur Leukocyte Esterase 1+ H Urine WBC (Auto) 9 Urine RBC (Auto) 1 Ur Epithelial Cells Many Hyaline Casts 1 Urine Mucus Rare Urine HCG, Qual Negative Blood Type A POSITIVE Antibody Screen 04/18/18 04/18/18 04/18/18 14:08 14:08 14:08 WBC RBC Hgb Hct MCV MCH MCHC RDW Plt Count MPV Absolute Neuts (auto) Neutrophils % Lymphocytes % Monocytes % Eosinophils % Basophils % Nucleated RBC % ESR PT with INR 12.20 INR 1.03 Sodium 137 Potassium 3.4 L Chloride 103 Carbon Dioxide 25 Anion Gap 9 BUN 10 Creatinine 0.9 Creat Clearance w eGFR > 60 Random Glucose 101 Calcium 8.6 Total Bilirubin 0.4 AST 11 L ALT 19 Alkaline Phosphatase 90 Troponin I Total Protein 7.3 Albumin 3.5 Urine Color Urine Appearance Urine pH Ur Specific [place] Urine Protein Urine Glucose (UA) Urine Ketones Urine Blood Urine Nitrite Urine Bilirubin Urine Urobilinogen Ur Leukocyte Esterase Urine WBC (Auto) Urine RBC (Auto) Ur Epithelial Cells Hyaline Casts Urine Mucus Urine HCG, Qual Blood Type A POSITIVE Antibody Screen Negative 04/18/18 04/19/18 04/19/18 21:25 06:00 06:00 WBC 9.8 RBC 4.06 Hgb 10.3 L Hct 31.4 L MCV 77.4 L MCH 25.3 L MCHC 32.7 RDW 17.9 H Plt Count 304 MPV 7.5 Absolute Neuts (auto) 4.9 Neutrophils % 49.9 D Lymphocytes % 39.4 D Monocytes % 8.0 Eosinophils % 2.2 D Basophils % 0.5 Nucleated RBC % 0 ESR PT with INR INR Sodium 138 Potassium 3.8 Chloride 106 Carbon Dioxide 26 Anion Gap 6 L BUN 8 Creatinine 0.8 Creat Clearance w eGFR > 60 Random Glucose 85 Calcium 8.0 L Total Bilirubin 0.5 AST 11 L ALT 15 Alkaline Phosphatase 84 Troponin I < 0.02 Total Protein 6.5 Albumin 3.1 L Urine Color Urine Appearance Urine pH Ur Specific [place] Urine Protein Urine Glucose (UA) Urine Ketones Urine Blood Urine Nitrite Urine Bilirubin Urine Urobilinogen Ur Leukocyte Esterase Urine WBC (Auto) Urine RBC (Auto) Ur Epithelial Cells Hyaline Casts Urine Mucus Urine HCG, Qual Blood Type Antibody Screen 04/19/18 06:00 WBC RBC Hgb Hct MCV MCH MCHC RDW Plt Count MPV Absolute Neuts (auto) Neutrophils % Lymphocytes % Monocytes % Eosinophils % Basophils % Nucleated RBC % ESR 16 PT with INR INR Sodium Potassium Chloride Carbon Dioxide Anion Gap BUN Creatinine Creat Clearance w eGFR Random Glucose Calcium Total Bilirubin AST ALT Alkaline Phosphatase Troponin I Total Protein Albumin Urine Color Urine Appearance Urine pH Ur Specific [place] Urine Protein Urine Glucose (UA) Urine Ketones Urine Blood Urine Nitrite Urine Bilirubin Urine Urobilinogen Ur Leukocyte Esterase Urine WBC (Auto) Urine RBC (Auto) Ur Epithelial Cells Hyaline Casts Urine Mucus Urine HCG, Qual Blood Type Antibody Screen Active Medications Generic Name Dose Route Start Last Admin Trade Name Freq PRN Reason Stop Dose Admin Acetaminophen 650 mg 04/18/18 23:19 Tylenol - PO Q6H PRN FEVER Bupropion HCl 300 mg 04/19/18 10:00 04/19/18 09:40 Wellbutrin Xl - PO 300 mg DAILY MELIA Administration Enoxaparin Sodium 100 mg/ 130 mg 04/18/18 22:45 04/19/18 10:57 Enoxaparin Sodium 30 mg SQ 130 mg BID MELIA Administration Hydrochlorothiazide 12.5 mg 04/19/18 10:00 04/19/18 09:40 Hctz - PO 12.5 mg DAILY MELIA Administration Levothyroxine Sodium 200 mcg 04/19/18 07:00 04/19/18 06:07 Synthroid - PO 200 mcg DAILY@0700 MELIA Administration Pantoprazole Sodium 40 mg 04/18/18 22:00 04/19/18 09:40 Protonix - PO 40 mg BID MELIA Administration Fluticasone/Salmeterol 1 puff 04/18/18 22:00 04/19/18 14:28 Advair 100mcg/50mcg - IH 1 puff BID MELIA Administration Sodium Chloride 2 spray 04/18/18 23:19 [place] Nasal [place] - NS Q12H PRN NASAL CONGESTION Valsartan 40 mg 04/19/18 10:00 04/19/18 09:40 Diovan - PO 40 mg DAILY MELIA Administration IMAGING: * CTA Chest: Multiple PE in the proximal and distal branches to the L upper and lower lobe PA as well as R upper, middle and R lower lobe pulmonary arteries. There is also a small embolus at the L main PA bifurcation. No acute lung disease is present. No enlarged mediastinal or hilar LN are identified. Evaluation of the upper abd appears unremarkable. * LE doppler: LLE DVT - popliteal/posterior tibial veins * EKG: NSR, HR 90, QTc 472 ms, No ST-T changes ASSESSMENT/PLAN: 52F w/ pmhx of HTN, Hashimotos, GERD/Hiatal Hernia, endometriosis, diverticulosis, anxiety, and vertigo presents to ED with shortness of breath found to have multiple PEs. #Pulmonary Embolism - on lovenox full dose. - options for coumadin, lovenox and NOAC discussed with pt. Pt wants to start prodaxa. I called her pharmacy to make sure if its covered by her insurance but their system is down. we will call them later - coagulation work can be done outpatinet - ct chest /abdomen and echo ordered #HTN Cont home meds: HCTZ 12.5 QD, Valsartan 40 QD #Abhilash's Cont home meds: Synthroid 200 mcg QD #GERD/Gastritis Cont home med: Protonix 40 BID #Hx of Tobacco Use Cont home med: Bupropion 300 mg QD #Vertigo -Cont to monitor #Prophylaxis -Currently on Lovenox dispo -admit to tele -full code Visit type - Emergency Visit Emergency Visit: Yes ED Registration Date: 04/18/18 Care time: The patient presented to the Emergency Department on the above date and was hospitalized for further evaluation of their emergent condition. - New Patient This patient is new to me today: Yes Date on this admission: 04/19/18 - Critical Care Critical Care patient: No
--- NOTE | 2018-04-19 16:55 | ECHO ---
Name: ASHLIE NGO Exam:Adult Echocardiogram Study Date: 04/19/2018 03:05 PM Age: 52 yrs Reason For Study: PE Height: 70 in Weight: 286 lb BSA: 2.4 m2 MMode/2D Measurements & Calculations IVSd: 1.2 cm Ao root diam: 3.2 cm LVIDd: 4.6 cm LA dimension: 3.8 cm LVIDs: 2.8 cm LVPWd: 1.1 cm LVPWs: 2.1 cm EDV(Teich): 98.1 ml ESV(Teich): 29.6 ml LVOT diam: 2.0 cm RV S Gary: 16.0 cm/sec Doppler Measurements & Calculations MV E max gary: 72.3 cm/sec Ao V2 max: 136.1 cm/sec MV A max gary: 98.5 cm/sec Ao max P.6 mmHg MV E/A: 0.73 Ao V2 mean: 106.2 cm/sec MV dec time: 0.12 sec Ao mean P.2 mmHg Ao V2 VTI: 27.1 cm MELBA(I,D): 2.5 cm2 MELBA(V,D): 2.4 cm2 LV V1 max P.2 mmHg SV(LVOT): 67.9 ml LV V1 mean P.1 mmHg LV V1 max: 102.3 cm/sec LV V1 mean: 64.6 cm/sec LV V1 VTI: 20.9 cm PA V2 max: 153.8 cm/sec Med Peak E' Gary: 9.1 cm/sec PA max P.5 mmHg Med E/e': 7.9 PA V2 mean: 94.5 cm/sec Lat Peak E' Gary: 9.9 cm/sec PA mean P.4 mmHg Lat E/e': 7.3 PA V2 VTI: 29.3 cm Left Ventricle Left ventricular systolic function is normal. Ejection Fraction = 55-60%. Right Ventricle The right ventricle is normal size. The right ventricular systolic function is normal. Atria Normal left and right atrial size and function. Mitral Valve The mitral valve is normal in structure and function. There is no mitral valve stenosis. There is mil d mitral regurgitation. Tricuspid Valve The tricuspid valve is normal in structure and function. There is mild tricuspid regurgitation. There was insufficient TR detected to calculate RV systolic pressure. Aortic Valve The aortic valve opens well. No hemodynamically significant valvular aortic stenosis. Pulmonic Valve The pulmonic valve is not well seen, but is grossly normal. There is no pulmonic valvular stenosis. T here is no pulmonic valvular regurgitation. Great Vessels The aortic root is normal size. Pericardium/Pleura There is no pericardial effusion. Interpretation Summary The right ventricle is normal size. The right ventricular systolic function is normal. Left ventricular systolic function is normal. Ejection Fraction = 55-60%. There is mild mitral regurgitation. There is mild tricuspid regurgitation. There was insufficient TR detected to calculate RV systolic pressure. MD Gayle *Adelina 04/19/2018 04:55 PM
[2018-04-19] MEDS ORDERED: ENOXAPARIN NA (PORCINE) 100 MG/1 ML DISP.SYRIN SQ ONE (21:45)
[2018-04-19] MEDS ORDERED: ENOXAPARIN NA (PORCINE) 30 MG/0.3 ML DISP.SYRIN SQ ONE (21:45)
[2018-04-19] MEDS ORDERED: LORazepam 1 MG TABLET ONE (21:51)
[2018-04-20] MEDS ORDERED: ATROPINE SULFATE 1 MG/10 ML DISP.SYRIN IVPUSH ONE (03:29)
--- NOTE | 2018-04-20 03:37 | RAPID ---
Physical Examination Vital Signs: Vital Signs Temperature 97.7 F 04/19/18 22:00 Pulse Rate 96 H 04/19/18 22:00 Respiratory Rate 20 04/19/18 22:00 Blood Pressure 139/75 04/19/18 22:00 O2 Sat by Pulse Oximetry (%) 95 04/19/18 21:00 Labs: CBC, BMP 04/19/18 06:00 04/19/18 06:00 Rapid Response - Rapid Response Assessment: Rapid response called overhead. On arriving to patient's room, pt was found sitting on the floor. Pt was appropriately responsive to questions. Initially, pt found to have heart rate in the 40s and BP 60/20. Atropine given with good response. Post HR 80, BP 104/60. EKG ordered. CBC, CMP, Mag, Phos, Trop, CKMB ordered. 1L fluid bolus. External pacemaker pads in place. Pt currently comfortable in bed and conversant.
[2018-04-20 05:01] LABS: BASO % 0.8 % (0-2.0); EOS % 2.8 % (0-4.5); HEMATOCRIT 32.9 % (32.4-45.2); HEMOGLOBIN 10.6 GM/dL (10.7-15.3); LYMPH % 35.4 % (8-40); MCH 25.1 pg (25.7-33.7); MCHC 32.3 g/dl (32.0-36.0); MEAN CELL VOLUME 77.9 fl (80-96); MEAN PLT VOLUME 7.8 fl (7.5-11.1); MONO % 7.7 % (3.8-10.2); NEUT % 53.3 % (42.8-82.8); PLATELET COUNT 278 K/MM3 (134-434); RBC 4.22 M/mm3 (3.60-5.2); RDW 18.2 % (11.6-15.6); WHITE BLOOD COUNT 9.6 K/mm3 (4.0-10.0)
[2018-04-20 05:56] LABS: ALBUMIN 3.3 g/dl (3.4-5.0); ALK PHOS 88 U/L (45-117); ANION GAP 9 MMOL/L (8-16); BILIRUBIN,TOTAL 0.5 mg/dL (0.2-1); BLOOD UREA NITROGEN 12 mg/dL (7-18); CALCIUM 8.1 mg/dL (8.5-10.1); CHLORIDE 106 mmol/L (98-107); CO2 24 mmol/L (21-32); CREATININE 0.9 mg/dL (0.55-1.3); GLUCOSE,RANDOM 125 mg/dL (74-106); MAGNESIUM 2.5 mg/dL (1.8-2.4); PHOSPHOROUS 4.7 mg/dL (2.5-4.9); POTASSIUM 3.8 mmol/L (3.5-5.1); SGOT/AST 9 U/L (15-37); SGPT/ALT 14 U/L (13-61); SODIUM 139 mmol/L (136-145); TOT PROT 7.1 g/dl (6.4-8.2)
[2018-04-20] MEDS: LEVOTHYROXINE NA 100 MCG TABLET (FP) PO SCH (06:46)
--- NOTE | 2018-04-20 08:32 | PN ---
Progress Note, Physician Chief Complaint: Ms Gonzalez feels "wiped out" after episode last night. Currently denies cp, sob, n/v. - Current Medication List Current Medications: Active Medications Acetaminophen (Tylenol -) 650 mg PO Q6H PRN PRN Reason: FEVER Bupropion HCl (Wellbutrin Xl -) 300 mg PO DAILY [facility] Last Admin: 04/19/18 09:40 Dose: 300 mg Enoxaparin Sodium 100 mg/ (Enoxaparin Sodium 30 mg) 130 mg SQ BID [facility] Last Admin: 04/19/18 22:47 Dose: 130 mg Hydrochlorothiazide (Hctz -) 12.5 mg PO DAILY [facility] Last Admin: 04/19/18 09:40 Dose: 12.5 mg Levothyroxine Sodium (Synthroid -) 200 mcg PO DAILY@0700 [facility] Last Admin: 04/20/18 06:46 Dose: 200 mcg Pantoprazole Sodium (Protonix -) 40 mg PO BID [facility] Last Admin: 04/19/18 22:47 Dose: 40 mg Fluticasone/Salmeterol (Advair 100mcg/50mcg -) 1 puff IH BID [facility] Last Admin: 04/19/18 22:47 Dose: Not Given Sodium Chloride ([place] Nasal [place] -) 2 spray NS Q12H PRN PRN Reason: NASAL CONGESTION Valsartan (Diovan -) 40 mg PO DAILY [facility] Last Admin: 04/19/18 09:40 Dose: 40 mg - Objective Vital Signs: Vital Signs Temperature 36.7 C 04/20/18 05:15 Pulse Rate 81 04/20/18 05:15 Respiratory Rate 18 04/20/18 05:15 Blood Pressure 133/79 04/20/18 05:15 O2 Sat by Pulse Oximetry (%) 100 04/20/18 04:40 Constitutional: Yes: No Distress, Calm, Obese Cardiovascular: Yes: Regular Rate and Rhythm. No: Gallop, Murmur, Rub Respiratory: Yes: Regular, CTA Bilaterally. No: Rales, Rhonchi, Wheezes Gastrointestinal: Yes: Normal Bowel Sounds, Soft. No: Distention, Tenderness Extremities: Yes: WNL Edema: No Labs: CBC, BMP 04/20/18 04:25 04/20/18 04:25 INR, PTT INR 1.03 (0.83-1.09) 04/18/18 14:08 Problem List - Problems (1) DVT (deep venous thrombosis) Code(s): I82.409 - ACUTE EMBOLISM AND THOMBOS UNSP DEEP VN UNSP LOWER EXTREMITY Qualifiers: DVT location: lower extremity Affected thrombotic vein of extremity: unspecified vein of extremity Chronicity: acute Laterality: left Qualified Code(s): I82.402 - Acute embolism and thrombosis of unspecified deep veins of left lower extremity (2) Pulmonary embolism Code(s): I26.99 - OTHER PULMONARY EMBOLISM WITHOUT ACUTE COR PULMONALE Qualifiers: Pulmonary embolism type: unspecified Chronicity: acute Acute cor pulmonale presence: without acute cor pulmonale Qualified Code(s): I26.99 - Other pulmonary embolism without acute cor pulmonale (3) HTN (hypertension) Code(s): I10 - ESSENTIAL (PRIMARY) HYPERTENSION (4) Hypothyroid Code(s): E03.9 - HYPOTHYROIDISM, UNSPECIFIED (5) Vasovagal near syncope Code(s): R55 - SYNCOPE AND COLLAPSE Assessment/Plan -patient with vasovagal episode -suspect secondary to recent PE -since bradycardic, will consult cardiology -continue lovenox in hospital, can discharge on pradaxa -ECHO reviewed, no right heart strain -CT scan pending -monitor on telemetry today to evaluate if episode recurs -otherwise continue current management -possible discharge tomorrow
[2018-04-20] MEDS ORDERED: PT OWN MED DRAWER 7, Y5N ONE ×5 (09:09→22:29)
[2018-04-20] MEDS: SODIUM CHLORIDE NASAL SPRAY 44 ML BOTTLE NS PRN (09:26)
[2018-04-20] MEDS: ENOXAPARIN 100 MG, ENOXAPARIN 30 MG SQ SCH ×2 (09:27→21:58)
[2018-04-20] MEDS: PANTOPRAZOLE 40 MG TABLET (FP) PO SCH ×2 (09:28→21:57)
[2018-04-20] MEDS: FLUTICASONE/SALMETEROL 100 MCG/50 MCG DISKUS IH SCH ×2 (09:28→21:57)
[2018-04-20] MEDS: VALSARTAN 40 MG TABLET (FP) PO SCH (09:28)
[2018-04-20] MEDS: HYDROCHLOROTHIAZIDE 12.5 MG CAPSULE (FP) PO SCH (09:28)
[2018-04-20] MEDS ORDERED: ARTIFICIAL TEARS (POLYVINYL ALCOHOL) OPTH DROPS OU PRN (11:50)
--- NOTE | 2018-04-20 12:40 | CON.CARD ---
Cardiology Consult (text) - Consultation Consultation Note: cc: sob hpi: 52F with PMHx of HTN, Hashimotos, GERD/Hiatal Hernia, endometriosis, diverticulosis, anxiety, and vertigo presents to ED with shortness of breath. Also with calf pain. No cp palps pnd orthopnea le edema. Found to have pe and dvt, now on ac. Last night was using bathroom and getting up from toilet she felt lightheaded and collapsed to floor. No palps cp sob then. RR called and found to have low bp and hr. Given atropine and vitals improved. Pt feels well now. Pt reports similar, but less severe symptoms each month during her menstrual period. Never had loc like this before. No hx hrt dz. pmh:per hpi psh: nc social: no tob fam: premature cad, scd ros: per hpi; no nvd fever farr vision changes gib hematuria dysuria muscle pain meds: Home Medications Medication Instructions Recorded Albuterol Sulfate Inhaler - 1 - 2 inh PO Q4H PRN 04/18/18 [Ventolin Hfa Inhaler -] Bupropion HCl [Bupropion HCl Sr] 150 mg PO BID 04/18/18 Fluticasone/Salmeterol [Advair Hfa 1 inh PO BID 04/18/18 115-21 Mcg Inhaler] Hydrochlorothiazide [Hctz -] 12.5 mg PO DAILY 04/18/18 Levothyroxine [Synthroid -] 200 mcg PO ASDIR 04/18/18 Pantoprazole Sodium [Protonix] 40 mg PO BID 04/18/18 Prednisone 10 mg PO ASDIR 04/18/18 Salmeterol/Fluticasone [Advair 1 inh PO BID 04/18/18 100Mcg/50Mcg -] Sodium Chloride Nasal [place] [[place] 2 spray NS BID PRN 04/18/18 [place] Nasal [place]] Valsartan [Diovan] 40 mg PO DAILY 04/18/18 pe: Vital Signs Period Temp Pulse Resp BP Sys/Landeros Pulse Ox Last 24 Hr 97.5 F-98.0 F 80-96 16-20 119-140/71-79 95-100 nad no jvd rrr s1s2 no mrg cta bl nl eff aao3 no le e/c/c abd nt nd pos bs no jaundice diaphoresis pos dp pt no carotid bruits Laboratory Last Values WBC 9.6 K/mm3 (4.0-10.0) 04/20/18 04:25 Corrected WBC (auto) Cancelled 04/20/18 04:25 RBC 4.22 M/mm3 (3.60-5.2) 04/20/18 04:25 Hgb 10.6 GM/dL (10.7-15.3) L 04/20/18 04:25 Hct 32.9 % (32.4-45.2) 04/20/18 04:25 MCV 77.9 fl (80-96) L 04/20/18 04:25 MCH 25.1 pg (25.7-33.7) L 04/20/18 04:25 MCHC 32.3 g/dl (32.0-36.0) 04/20/18 04:25 RDW 18.2 % (11.6-15.6) H 04/20/18 04:25 Plt Count 278 K/MM3 (134-434) 04/20/18 04:25 MPV 7.8 fl (7.5-11.1) 04/20/18 04:25 Absolute Neuts (auto) 5.1 K/mm3 (1.5-8.0) 04/20/18 04:25 Neutrophils % 53.3 % (42.8-82.8) 04/20/18 04:25 Lymphocytes % 35.4 % (8-40) 04/20/18 04:25 Monocytes % 7.7 % (3.8-10.2) 04/20/18 04:25 Eosinophils % 2.8 % (0-4.5) 04/20/18 04:25 Basophils % 0.8 % (0-2.0) 04/20/18 04:25 Nucleated RBC % 0 % (0-0) 04/20/18 04:25 Manual Slide Review Cancelled 04/20/18 04:25 Platelet Comment Cancelled 04/20/18 04:25 ESR 16 mm/hr (0-30) 04/19/18 06:00 Retic Count 2.32 % (0.5-1.5) H 04/20/18 04:25 PT with INR 12.20 SEC (9.7-13.0) 04/18/18 14:08 INR 1.03 (0.83-1.09) 04/18/18 14:08 Sodium 139 mmol/L (136-145) 04/20/18 04:25 Potassium 3.8 mmol/L (3.5-5.1) 04/20/18 04:25 Chloride 106 mmol/L (98-107) 04/20/18 04:25 Carbon Dioxide 24 mmol/L (21-32) 04/20/18 04:25 Anion Gap 9 MMOL/L (8-16) 04/20/18 04:25 BUN 12 mg/dL (7-18) 04/20/18 04:25 Creatinine 0.9 mg/dL (0.55-1.3) 04/20/18 04:25 Creat Clearance w eGFR > 60 (>60) 04/20/18 04:25 Random Glucose 125 mg/dL (74-106) H 04/20/18 04:25 Calcium 8.1 mg/dL (8.5-10.1) L 04/20/18 04:25 Phosphorus 4.7 mg/dL (2.5-4.9) 04/20/18 04:25 Magnesium 2.5 mg/dL (1.8-2.4) H 04/20/18 04:25 Ferritin 10.5 ng/ml (8-388) 04/20/18 04:25 Total Bilirubin 0.5 mg/dL (0.2-1) 04/20/18 04:25 AST 9 U/L (15-37) L 04/20/18 04:25 ALT 14 U/L (13-61) 04/20/18 04:25 Alkaline Phosphatase 88 U/L (45-117) 04/20/18 04:25 LD Total 260 U/L (84-246) H 04/20/18 04:25 CK-MB (CK-2) < 1.0 ng/mL (0.5-3.6) 04/20/18 04:25 Troponin I < 0.02 ng/ml (0.00-0.05) 04/20/18 04:25 Total Protein 7.1 g/dl (6.4-8.2) 04/20/18 04:25 Albumin 3.3 g/dl (3.4-5.0) L 04/20/18 04:25 TSH 8.01 uIU/ml (0.358-3.74) H 04/20/18 04:25 Urine Color Yellow 04/18/18 14:00 Urine Appearance Slcloudy 04/18/18 14:00 Urine pH 7.0 (5.0-8.0) 04/18/18 14:00 Ur Specific [place] 1.020 (1.010-1.035) 04/18/18 14:00 Urine Protein 1+ (NEGATIVE) H 04/18/18 14:00 Urine Glucose (UA) Negative (NEGATIVE) 04/18/18 14:00 Urine Ketones Negative (NEGATIVE) 04/18/18 14:00 Urine Blood Negative (NEGATIVE) 04/18/18 14:00 Urine Nitrite Negative (NEGATIVE) 04/18/18 14:00 Urine Bilirubin Negative (<2.0 mg/dL) 04/18/18 14:00 Urine Urobilinogen Negative mg/dL (0.2-1.0) 04/18/18 14:00 Ur Leukocyte Esterase 1+ (NEGATIVE) H 04/18/18 14:00 Urine WBC (Auto) 9 /hpf (3-5) 04/18/18 14:00 Urine RBC (Auto) 1 /hpf (0-3) 04/18/18 14:00 Ur Epithelial Cells Many /HPF (FEW) 04/18/18 14:00 Hyaline Casts 1 /lpf 04/18/18 14:00 Urine Mucus Rare 04/18/18 14:00 Urine HCG, Qual Negative 04/18/18 14:00 Blood Type A POSITIVE 04/18/18 14:08 Antibody Screen Negative 04/18/18 14:08 echo 04/2018: nl lv/rv, mild mr/tr ecg: sr, nl intervals, no ischemic changes cta chest: b/l pes, no chf tele: sr a/p: 52F with PMHx of HTN, Hashimotos, GERD/Hiatal Hernia, endometriosis, diverticulosis, anxiety, and vertigo presents to ED with shortness of breath. sob, PEs, dvt: -no signs chf or acs. -echo unremarkable -cont AC bradycardia, syncope: -seems like vasovagal episode -echo, tele benign -rec'd increase po hydration and slow positional changes htn: -cont current meds hypothyroid: -tsh 8, tx per primary
--- NOTE | 2018-04-20 19:16 | PN ---
Progress Note, Physician Chief Complaint: sob History of Present Illness: Had [employer]OR [employer]ION WORK this morning after pt was found sitting on the floor. +LOC Found to have heart rate in the 40s and BP 60/20. Received atropine with good response and normalization of vitals. Transferred to ICU. Pt reports prior episodes of presyncope during her period (currently has period). Evaluated by cardiology, thought to be vasovagal in etiology. - Current Medication List Current Medications: Active Medications Acetaminophen (Tylenol -) 650 mg PO Q6H PRN PRN Reason: FEVER Artificial Tears (Artificial Tears) 1 drop OU QID PRN PRN Reason: DRY EYES Bupropion HCl (Wellbutrin Xl -) 300 mg PO DAILY [facility] Last Admin: 04/20/18 09:28 Dose: 300 mg Enoxaparin Sodium 100 mg/ (Enoxaparin Sodium 30 mg) 130 mg SQ BID [facility] Last Admin: 04/20/18 09:27 Dose: 130 mg Hydrochlorothiazide (Hctz -) 12.5 mg PO DAILY [facility] Last Admin: 04/20/18 09:28 Dose: 12.5 mg Levothyroxine Sodium (Synthroid -) 200 mcg PO DAILY@0700 [facility] Levothyroxine Sodium (Synthroid -) 100 mcg PO Fleming@0700 [facility] Pantoprazole Sodium (Protonix -) 40 mg PO BID [facility] Last Admin: 04/20/18 09:28 Dose: 40 mg Fluticasone/Salmeterol (Advair 100mcg/50mcg -) 1 puff IH BID [facility] Last Admin: 04/20/18 09:28 Dose: 1 puff Sodium Chloride ([place] Nasal [place] -) 2 spray NS Q12H PRN PRN Reason: NASAL CONGESTION Last Admin: 04/20/18 09:26 Dose: 2 spray Valsartan (Diovan -) 40 mg PO DAILY [facility] Last Admin: 04/20/18 09:28 Dose: 40 mg - Objective Vital Signs: Vital Signs Temperature 98.2 F 04/20/18 14:00 Pulse Rate 103 H 04/20/18 14:00 Respiratory Rate 15 04/20/18 14:00 Blood Pressure 137/86 04/20/18 14:00 O2 Sat by Pulse Oximetry (%) 100 04/20/18 09:00 Constitutional: Yes: Well Nourished, Calm Eyes: Yes: Conjunctiva Clear Cardiovascular: Yes: WNL, Regular Rate and Rhythm Respiratory: Yes: WNL, Regular, CTA Bilaterally Gastrointestinal: Yes: WNL, Soft Extremities: Yes: WNL Edema: No Labs: CBC, BMP 04/20/18 04:25 04/20/18 04:25 INR, PTT INR 1.03 (0.83-1.09) 04/18/18 14:08 Assessment/Plan 52F with HTN, Hashimotos, endometriosis admitted with unprovoked PE (multiple pulmonary emboili in the proximal and distal branches of left upper and lower lobe pulmonary artery, RLL pulmonary arteries, small embolus in left main at left pulmonary artery bifurcation). Started on Lovenox. TTE normal. UTD on mammo/colonoscopy. CTAP without signs of malignancy. On tele for hypotensive event. Hgb stable. Has mild microcytic anemia. Ferritin 10. Would start Feosol 325 mg BID. Partial thrombophilia w/u is pending. 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
[2018-04-21] MEDS ORDERED: SODIUM CHLORIDE 1,000 ML IV SCH (00:45)
[2018-04-21] MEDS ORDERED: LORazepam 2 MG/ML SDV VIAL IVPUSH ONE (03:31)
[2018-04-21 06:09] LABS: BASO % 0.5 % (0-2.0); HEMATOCRIT 31.9 % (32.4-45.2); HEMOGLOBIN 10.4 GM/dL (10.7-15.3); LYMPH % 29.4 % (8-40); MCH 25.1 pg (25.7-33.7); MCHC 32.6 g/dl (32.0-36.0); MEAN PLT VOLUME 7.4 fl (7.5-11.1); MONO % 6.4 % (3.8-10.2); NEUT % 61.7 % (42.8-82.8); PLATELET COUNT 313 K/MM3 (134-434); RBC 4.15 M/mm3 (3.60-5.2); RDW 17.9 % (11.6-15.6); WHITE BLOOD COUNT 10.1 K/mm3 (4.0-10.0)
[2018-04-21 06:30] LABS: ANION GAP 8 MMOL/L (8-16); BLOOD UREA NITROGEN 11 mg/dL (7-18); CALCIUM 8.6 mg/dL (8.5-10.1); CHLORIDE 103 mmol/L (98-107); CO2 27 mmol/L (21-32); CREATININE 0.9 mg/dL (0.55-1.3); GLUCOSE,RANDOM 112 mg/dL (74-106); MAGNESIUM 2.1 mg/dL (1.8-2.4); PHOSPHOROUS 4.5 mg/dL (2.5-4.9); POTASSIUM 4.1 mmol/L (3.5-5.1); SODIUM 138 mmol/L (136-145)
[2018-04-21] MEDS ORDERED: LEVOTHYROXINE NA 100 MCG TABLET (FP) PO SCH (07:00)
--- NOTE | 2018-04-21 09:27 | DS ---
Physical Examination Vital Signs: Vital Signs Temperature 36.3 C L 04/21/18 07:00 Pulse Rate 73 04/21/18 07:00 Respiratory Rate 20 04/21/18 07:00 Blood Pressure 116/74 04/21/18 07:00 O2 Sat by Pulse Oximetry (%) 100 04/20/18 21:00 Constitutional: Yes: No Distress, Calm, Obese Cardiovascular: Yes: Regular Rate and Rhythm. No: Gallop, Murmur, Rub Respiratory: Yes: Regular, CTA Bilaterally. No: Rales, Rhonchi, Wheezes Gastrointestinal: Yes: Normal Bowel Sounds, Soft. No: Distention, Tenderness Extremities: Yes: WNL Edema: No Labs: CBC, BMP 04/21/18 05:30 04/21/18 05:30 Discharge Summary Reason For Visit: DEEP VEIN THROMBOSIS/PULMONARY EMBOLISM Current Active Problems DVT (deep venous thrombosis) (Acute) HTN (hypertension) (Acute) Hypothyroid (Acute) Pulmonary embolism (Acute) Vasovagal near syncope (Acute) Hospital Course: (1) DVT (deep venous thrombosis) Code(s): I82.409 - ACUTE EMBOLISM AND THOMBOS UNSP DEEP VN UNSP LOWER EXTREMITY Qualifiers: DVT location: lower extremity Affected thrombotic vein of extremity: unspecified vein of extremity Chronicity: acute Laterality: left Qualified Code(s): I82.402 - Acute embolism and thrombosis of unspecified deep veins of left lower extremity (2) Pulmonary embolism Code(s): I26.99 - OTHER PULMONARY EMBOLISM WITHOUT ACUTE COR PULMONALE Qualifiers: Pulmonary embolism type: unspecified Chronicity: acute Acute cor pulmonale presence: without acute cor pulmonale Qualified Code(s): I26.99 - Other pulmonary embolism without acute cor pulmonale (3) HTN (hypertension) Code(s): I10 - ESSENTIAL (PRIMARY) HYPERTENSION (4) Hypothyroid Code(s): E03.9 - HYPOTHYROIDISM, UNSPECIFIED (5) Vasovagal near syncope Code(s): R55 - SYNCOPE AND COLLAPSE Ms Gonzalez is a very pleasant 52 year old female with leg pain and was found to have DVT/PE that was unprovoked. She was admitted to the hospital and started on lovenox. Hematology was consulted and began the work up for hypercoagulability. She had an ECHO and CT A/P which were normal. She had an episode of presyncope while here, she says it happens frequently in the outpatient. She did become bradycardic and cardiology was consulted. She was cleared and it did not recur. She is instructed to stand up slowly. I will also stop her HCTZ as well as this can contribute. She is safe for discharge home, she will be started on xarelto 15mg bid for 21 days and then changed to 20mg daily. She is instructed to follow up closely with Dr Martinez and Dr Cook. 37 minutes spent in preparation of this discharge Condition: Good - Instructions Diet, Activity, Other Instructions: resume previous diet and activity. When going from a lying to standing position , sit for 1-2 minutes before standing. Also when standing, stay close to an area you can sit down to prevent falls. Referrals: Rich Martinez MD [Primary Care Provider] - Arthur Cook MD [Staff Physician] - Disposition: HOME - Home Medications Comprehensive Discharge Medication List: Ambulatory Orders Albuterol Sulfate Inhaler - [Ventolin HFA Inhaler -] 1 - 2 inh PO Q4H PRN Bupropion HCl [Bupropion HCl Sr] 150 mg PO BID 04/18/18 Fluticasone/Salmeterol [Advair Hfa 115-21 Mcg Inhaler] 1 inh PO BID 04/18/18 Levothyroxine [Synthroid -] 200 mcg PO ASDIR 04/18/18 Pantoprazole Sodium [Protonix] 40 mg PO BID 04/18/18 Salmeterol/Fluticasone [Advair 100Mcg/50Mcg -] 1 inh PO BID 04/18/18 Sodium Chloride Nasal [place] [[place] Nasal [place] -] 2 spray NS BID PRN 04/18 Valsartan [Diovan] 40 mg PO DAILY 04/18/18 Rivaroxaban [Xarelto -] 20 mg PO DAILY #30 tablet 04/21/18 Rivaroxaban [Xarelto] 15 mg PO BID #42 tablet 04/21/18
[2018-04-21] MEDS ORDERED: RIVAROXABAN 15 MG TABLET PO SCH (10:00)
--- NOTE | 2018-04-21 10:27 | PN ---
Progress Note (short form) - Note Progress Note: s: no cp sob palps; mild dizzy when standing, no loc o: Vital Signs Period Temp Pulse Resp BP Sys/[place] Pulse Ox Last 24 Hr 97.3 F-98.2 F 72-103 15-21 116-137/68-86 100 nad no jvd rrr s1s2 no mrg cta bl nl eff aao3 no le e/c/c abd nt nd pos bs no jaundice diaphoresis Current Medications Generic Name Dose Route Start Last Admin Trade Name Freq PRN Reason Stop Dose Admin Acetaminophen 650 mg 04/18/18 23:19 Tylenol - PO Q6H PRN FEVER Artificial Tears 1 drop 04/20/18 11:50 Artificial Tears OU QID PRN DRY EYES Bupropion HCl 300 mg 04/19/18 10:00 04/20/18 09:28 Wellbutrin Xl - PO 300 mg DAILY MELIA Administration Sodium Chloride 1,000 mls @ 50 mls/hr 04/21/18 00:45 04/21/18 00:39 Normal Saline - IV 04/22/18 00:32 50 mls/hr ASDIR MELIA Administration Levothyroxine Sodium 200 mcg 04/22/18 07:00 Synthroid - PO DAILY@0700 MELIA Levothyroxine Sodium 100 mcg 04/21/18 07:00 04/21/18 06:53 Synthroid - PO 100 mcg Fleming@0700 MELIA Administration Pantoprazole Sodium 40 mg 04/18/18 22:00 04/20/18 21:57 Protonix - PO 40 mg BID MELIA Administration Rivaroxaban 15 mg 04/21/18 10:00 Xarelto PO BID MELIA Fluticasone/Salmeterol 1 puff 04/18/18 22:00 04/20/18 21:57 Advair 100mcg/50mcg - IH 1 puff BID MELIA Administration Sodium Chloride 2 spray 04/18/18 23:19 04/20/18 09:26 [place] Nasal [place] - NS 2 spray Q12H PRN Administration NASAL CONGESTION Valsartan 40 mg 04/19/18 10:00 04/20/18 09:28 Diovan - PO 40 mg DAILY MELIA Administration CBC, BMP 04/21/18 05:30 04/21/18 05:30 echo 04/2018: nl lv/rv, mild mr/tr ecg: sr, nl intervals, no ischemic changes cta chest: b/l pes, no chf tele: sr a/p: 52F with PMHx of HTN, Hashimotos, GERD/Hiatal Hernia, endometriosis, diverticulosis, anxiety, and vertigo presents to ED with shortness of breath. sob, PEs, dvt: -no signs chf or acs. -echo unremarkable -cont AC bradycardia, syncope: -seems like vasovagal episode -echo, tele benign -rec'd increase po hydration and slow positional changes htn: -cont current meds hypothyroid: -tsh 8, tx per primary cardiac grissom stable for dc
[2018-04-21] MEDS: VALSARTAN 40 MG TABLET (FP) PO SCH (10:40)
[2018-04-21] MEDS: PANTOPRAZOLE 40 MG TABLET (FP) PO SCH (10:40)
[2018-04-21] MEDS: SODIUM CHLORIDE NASAL SPRAY 44 ML BOTTLE NS PRN (11:11)
[2018-04-21] MEDS: FLUTICASONE/SALMETEROL 100 MCG/50 MCG DISKUS IH SCH (11:11)
--- NOTE | 2018-04-21 11:55 | EKG ---
Test Reason : Blood Pressure : / mmHG Vent. Rate : 083 BPM Atrial Rate : 083 BPM P-R Int : 152 ms QRS Dur : 088 ms QT Int : 400 ms P-R-T Axes : 070 057 050 degrees QTc Int : 470 ms NORMAL SINUS RHYTHM NORMAL ECG WHEN COMPARED WITH ECG OF 18-APR-2018 14:30, NO SIGNIFICANT CHANGE WAS FOUND Confirmed by SHAJI MCKNIGHT MD ([id number]) on 04/21/2018 11:54:47 AM Referred By: Confirmed By:SHAJI MCKNIGHT MD
[2018-04-21 14:24] VITALS: BP 148/72; PULSE 75; TEMP 97.4
[2018-04-22] MEDS ORDERED: LEVOTHYROXINE NA 100 MCG TABLET (FP) PO SCH (07:00)
[2018-04-22 07:12] LABS: SERUM IRON SATURATION 9 % (15-55); TOTAL IRON BINDING CAPACITY 391 ug/dL (250-450); UIBC 357 ug/dL (131-425)
== END 2018-04-21 12:30 | disposition home or self-care (01) | DRG 197 ==
LOC: JER 12:50 → JERBED 18:42 → J4S 22:16 → J2W 04-20 04:35
PROVIDERS: ADMIT Internal Medicine; ATTEND Internal Medicine
DX: I82.432 Acute embolism and thrombosis of left popliteal vein (principal); I82.442 Acute embolism and thrombosis of left tibial vein; I26.99 Other pulmonary embolism without acute cor pulmonale; I10 Essential (primary) hypertension; K21.9 Gastro-esophageal reflux disease without esophagitis; E06.3 Autoimmune thyroiditis; D72.829 Elevated white blood cell count, unspecified; F41.9 Anxiety disorder, unspecified; K44.9 Diaphragmatic hernia without obstruction or gangrene; Z88.0 Allergy status to penicillin; K29.60 Other gastritis without bleeding; E66.9 Obesity, unspecified; R55 Syncope and collapse; R00.1 Bradycardia, unspecified; D50.9 Iron deficiency anemia, unspecified; Z68.41 Body mass index [BMI] 40.0-44.9, adult
CPT/HCPCS: 36415; 71275-TC; 74176-TC; 80048; 80053; 81003; 81015; 81241; 82553; 82728; 82784; 83516; 83540; 83550; 83615; 83735; 84100; 84439; 84443; 84484; 84703; 85025; 85044; 85300; 85303; 85306; 85610; 85651; 86850; 86900; 86901; 87086; 93005; 93010; 93306-TC; 94010; 99283-25; J1644; J7030

== ENCOUNTER 2018-08-27 20:51 | Emergency (ER) | payer OTHER ==
--- NOTE | 2018-08-27 20:56 | PDOC ---
Rapid Medical Evaluation Time Seen by Provider: 08/27/18 20:53 Medical Evaluation: Allergies Allergy/AdvReac Type Severity Reaction Status Date / Time aspirin Allergy Severe Verified 03/07/17 10:31 Iodinated Contrast- Oral and Allergy Intermediate Hives Verified 04/19/18 02:01 IV Dye Penicillins Allergy Intermediate Verified 03/07/17 10:31 08/27/18 20:53 I have performed a brief in-person evaluation of this patient. The patient presents with a chief complaint of: Worsening L calf pain today. Dx w/ L unprovoked DVT 04/2018, PE, on xarelto and compliant. No CP, SOB, cough or palpitations. Of note, f/u b/l US done yesterday at [facility] was negative for acute DVT. H/o GERD, anxiety, former smoker Pertinent physical exam findings:appears anxious here, tachy to 116, no obvious LLE swelling and no TTP I have ordered the following:nothing The patient will proceed to the ED for further evaluation Discharge Disposition - Diagnosis Pain of left calf - Referrals - Patient Instructions - Post Discharge Activity
[2018-08-27 20:57] VITALS: BP 164/99; PULSE 116; TEMP 98; BMI 40.8
--- NOTE | 2018-08-27 21:13 | PDOC ---
*Physical Exam - Vital Signs Last Vital Signs Temp Pulse Resp BP Pulse Ox 98.0 F 116 H 16 164/99 100 08/27/18 20:54 08/27/18 20:54 08/27/18 20:54 08/27/18 20:54 08/27/18 20:54 Medical Decision Making - Medical Decision Making 08/27/18 21:13 Patient seen by the advanced practice provider under my direct supervision. Ancillary testing reviewed as necessary. I agree with plan as outlined by the advanced practice provider. *DC/Admit/Observation/Transfer Diagnosis at time of Disposition: Pain of left calf Bakers cyst Qualifiers: Laterality: left Qualified Code(s): M71.22 - Synovial cyst of popliteal space [ Wong], left knee - Discharge Dispostion Disposition: HOME - Referrals Referrals: Rich Alvarez MD [Staff Physician] - Rich Martinez MD [Primary Care Provider] - - Patient Instructions Printed Discharge Instructions: Bakers Cyst Additional Instructions: rest ICE take tylenol as needed for pain - Post Discharge Activity Forms/Work/School Notes: Back to Work
--- NOTE | 2018-08-27 21:54 | PDOC ---
History of Present Illness - General Chief Complaint: Pain, Acute Stated Complaint: LEFT LEG PAIN Time Seen by Provider: 08/27/18 20:53 History Source: Patient - History of Present Illness Initial Comments: 08/27/18 21:49 52 year old female s/p routine US yesterday by Dr. martinez. today with pain to left leg pain and swelling with calf pain since tonight while sitting on the couch. no shortness of breath. 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 pmhx: hashimotos, thyroid disease Past History - Past Medical History Allergies/Adverse Reactions: Allergies Allergy/AdvReac Type Severity Reaction Status Date / Time aspirin Allergy Severe Verified 08/27/18 20:58 Iodinated Contrast- Oral and Allergy Intermediate Hives Verified 08/27/18 20:58 IV Dye Penicillins Allergy Intermediate Verified 08/27/18 20:58 Home Medications: Ambulatory Orders Albuterol Sulfate Inhaler - [Ventolin HFA Inhaler -] 1 - 2 inh PO Q4H PRN Bupropion HCl [Bupropion HCl Sr] 150 mg PO BID 04/18/18 Fluticasone/Salmeterol [Advair Hfa 115-21 Mcg Inhaler] 1 inh PO BID 04/18/18 Levothyroxine [Synthroid -] 200 mcg PO ASDIR 04/18/18 Pantoprazole Sodium [Protonix] 40 mg PO BID 04/18/18 Salmeterol/Fluticasone [Advair 100Mcg/50Mcg -] 1 inh PO BID 04/18/[address] [[place] [address] [address] -] 2 spray NS BID PRN 04/18 Valsartan [Diovan] 40 mg PO DAILY 04/18/18 Rivaroxaban [Xarelto -] 20 mg PO DAILY #30 tablet 04/21/18 Rivaroxaban [Xarelto -] 20 mg PO DAILY #30 tablet 04/21/18 Rivaroxaban [Xarelto] 15 mg PO BID #42 tab 04/21/18 Rivaroxaban [Xarelto] 15 mg PO BID #42 tablet 04/21/18 Anemia: No Asthma: No Cancer: No Cardiac Disorders: No CVA: No COPD: No CHF: No Dementia: No Diabetes: No GI Disorders: Yes (GERD, gastritis, hiatal hernia, gastritis) Disorders: No HTN: Yes Hypercholesterolemia: No Liver Disease: No Seizures: No Thyroid Disease: Yes (hypothyroidism, hasimoto's) - Surgical History Abdominal Surgery: No Appendectomy: No Cardiac Surgery: No Cholecystectomy: No Lung Surgery: No Neurologic Surgery: No Orthopedic Surgery: No - Suicide/Smoking/Psychosocial Hx Smoking History: Unknown if ever smoked Have you smoked in the past 12 months: No Number of Cigarettes Smoked Daily: 20 If you are a former smoker, when did you quit?: 1993 Information on smoking cessation initiated: No Hx Alcohol Use: No Drug/Substance Use Hx: No Substance Use Type: None Hx Substance Use Treatment: No Review of Systems - Review of Systems Able to Perform ROS?: Yes Is the patient limited Citizen [place] proficient: No Constitutional: No: Symptoms Reported, See HPI, Chills, Diaphoresis, Fever, Loss of Appetite, Malaise, Night Sweats, Weakness, Weight Stable, Unintentional Wgt. Loss, Unexplained wgt Loss, Other Musculoskeletal: Yes: Other (left calf pain) *Physical Exam - Vital Signs Last Vital Signs Temp Pulse Resp BP Pulse Ox 98.0 F 116 H 16 164/99 100 08/27/18 20:54 08/27/18 20:54 08/27/18 20:54 08/27/18 20:54 08/27/18 20:54 - Physical Exam General Appearance: Yes: Appropriately Dressed Respiratory/Chest: positive: Lungs Clear, Normal Breath Sounds Cardiovascular: positive: Tachycardia Gastrointestinal/Abdominal: positive: Normal Bowel Sounds, Soft Extremity: positive: Normal Capillary Refill, Normal Inspection, Normal Range of Motion Integumentary: positive: Normal Color, Dry, Warm Neurologic: positive: Fully Oriented, Alert, Abnormal Cranial NS Progress Note - Progress Note Progress Note: A: pain in left calf; bakers cyst P: US ortho follow up *DC/Admit/Observation/Transfer Diagnosis at time of Disposition: Pain of left calf Bakers cyst Qualifiers: Laterality: left Qualified Code(s): M71.22 - Synovial cyst of popliteal space [ Wong], left knee - Discharge Dispostion Disposition: HOME - Referrals Referrals: Rich Martinez MD [Primary Care Provider] - Rich Alvarez MD [Staff Physician] - - Patient Instructions Printed Discharge Instructions: Bakers Cyst Additional Instructions: rest ICE take tylenol as needed for pain - Post Discharge Activity Forms/Work/School Notes: Back to Work
== END 2018-08-27 22:50 | disposition home or self-care (01) ==
LOC: JER 20:51
DX: M71.22 Synovial cyst of popliteal space [Baker], left knee (principal); Z86.711 Personal history of pulmonary embolism; Z86.718 Personal history of other venous thrombosis and embolism; Z79.01 Long term (current) use of anticoagulants; I10 Essential (primary) hypertension; E06.3 Autoimmune thyroiditis; Z87.19 Personal history of other diseases of the digestive system
CPT/HCPCS: 93971-TC; 99282-25

== ENCOUNTER 2023-08-23 14:51 | Emergency (ER) | payer BC, OTHER ==
[2023-08-23 15:05] VITALS: BP 155/80; PULSE 106; RESP 18; TEMP 98; BMI 39.4
[2023-08-23] MEDS: ACETAMINOPHEN 325 MG TABLET (FP) PO ONE (17:16)
== END 2023-08-23 18:53 | disposition home or self-care (01) ==
LOC: JER 14:51
DX: M79.605 Pain in left leg (principal)
CPT/HCPCS: 93005; 93010; 93971-TC; 99284-25

== ENCOUNTER 2023-12-06 17:24 | Emergency (ER) | payer OTHER ==
[2023-12-06 18:18] VITALS: RESP 17
[2023-12-06] MEDS ORDERED: ALBUTEROL SO4 2.5/IPRATROPIUM 0.5 INH SOL 3 ML VIAL.NEB. NEB ONE (18:34)
[2023-12-06] MEDS: ALBUTEROL SO4 2.5/IPRATROPIUM 0.5 INH SOL 3 ML VIAL.NEB. NEB ONE (18:42)
[2023-12-06 18:53] VITALS: BMI 38.7
[2023-12-06 19:29] LABS: HEMATOCRIT 39.8 % (32.4-45.2); HEMOGLOBIN 13.1 GM/dL (10.7-15.3); MCH 29.8 pg (25.7-33.7); MCHC 32.8 g/dl (32.0-36.0); MEAN CELL VOLUME 90.7 fl (80-96); MEAN PLT VOLUME 8.3 fl (7.5-11.1); PLATELET COUNT 288 10^3/uL (134-434); RBC 4.39 M/mm3 (3.60-5.2); RDW 12.9 % (11.6-15.6)
[2023-12-06 19:46] LABS: POTASSIUM 3.3 mmol/L (3.5-5.1)
[2023-12-06 19:48] LABS: ALBUMIN 3.6 g/dl (3.4-5.0); CALCIUM 8.6 mg/dL (8.5-10.1)
[2023-12-06 19:49] LABS: BLOOD UREA NITROGEN 13.2 mg/dL (7-18)
[2023-12-06 19:51] LABS: CREATININE 0.8 mg/dL (0.55-1.3)
[2023-12-06 19:53] LABS: BILIRUBIN,TOTAL 0.3 mg/dL (0.2-1)
[2023-12-06 19:57] VITALS: BP 137/66; PULSE 98; TEMP 98.4
[2023-12-06 20:32] LABS: ANISOCYTOSIS 0; MACROCYTOSIS 0
== END 2023-12-06 21:59 | disposition home or self-care (01) ==
LOC: JER 17:24
PROC: 3E0F7GC Introduction of Other Therapeutic Substance into Respiratory Tract, Via Natural or Artificial Opening (ICD-10-PCS; principal; 2023-12-06)
DX: R07.89 Other chest pain (principal); J02.9 Acute pharyngitis, unspecified; R09.89 Other specified symptoms and signs involving the circulatory and respiratory systems; R05.9 Cough, unspecified; R42 Dizziness and giddiness; R11.0 Nausea; Z20.822 Contact with and (suspected) exposure to COVID-19
CPT/HCPCS: 0241U-QW; 36415; 71045-TC-FY; 80053; 84484; 85025; 93005; 93010; 99285-25